=== PATIENT | male | born 1965 | race Caucasian/White ===

== ENCOUNTER 2022-10-10 14:10 | Outpatient (RCR) | payer OTHER, SELFPAY | END 2022-10-27 23:59 | LOC: NS 14:10 | PROVIDERS: Referring Provider Orthopaedic Surgery; Visit Provider Orthopaedic Surgery | DX: Z71.3 Dietary counseling and surveillance (principal); E66.9 Obesity, unspecified; Z68.42 Body mass index [BMI] 45.0-49.9, adult | CPT/HCPCS: 97802 ==

== ENCOUNTER 2022-12-08 12:04 | Outpatient (RCR) | payer OTHER, SELFPAY | END 2022-12-27 23:59 | LOC: NS 12:04 | PROVIDERS: Referring Provider Orthopaedic Surgery; Visit Provider Orthopaedic Surgery | DX: Z71.3 Dietary counseling and surveillance (principal); E66.9 Obesity, unspecified; Z68.42 Body mass index [BMI] 45.0-49.9, adult | CPT/HCPCS: 97803 ==

== ENCOUNTER → 2023-04-05 | Outpatient (CLI) | payer OTHER, SELFPAY ==
[2023-04-05 11:13] LABS: Absolute Lymphocyte Count 1.97 X10^3/uL (0.83-4.51); Absolute Neutrophil Count 4.5 X10^3/uL (2.0-7.7); Basophil# 0.05 X10^3/uL; Basophil% 0.7 % (0-1); Eosinophils% 1.4 % (0-5); Hematocrit 46.7 % (40-54); Hemoglobin 14.7 g/dL (13.0-16.5); Lymphocyte # 1.97 X10^3/ul (0.83-4.51); Lymphocyte % 27.4 % (19-41); Mean Corp Hgb Conc 31.5 g/dL (32-36); Mean Corpuscular Hgb 26.6 pg (27.0-32.0); Mean Corpuscular Volume 84.6 fL (80-94); Monocyte# 0.56 X10^3/uL; Monocyte% 7.8 % (0-10); NRBC Flagged by Analyzer 0 % (0-5); Neutrophil % 62.6 % (47-70); Platelet Count 316 K/mm3 (150-450); RBC Distribution Width CV 14.9 % (11.6-14.6); RBC Distribution Width SD 45.5 fl (35.1-43.9); Red Blood Count 5.52 M/mm3 (4.6-6.2); White Blood Count 7.2 K/mm3 (4.4-11.0)
[2023-04-05 11:44] LABS: AST(SGOT) 16 U/L (15-37); Alanine Aminotransfer ALT/SGPT 31 U/L (16-61); Albumin, Serum 3.8 g/dL (3.2-5.0); Alkaline Phosphatase 80 U/L (45-117); Anion Gap 5 (5-15); BUN 22 mg/dL (7-18); Calcium,Total 9.4 mg/dL (8.5-10.1); Chloride 109 mmol/L (98-107); Cholesterol 272 mg/dL (200); Creatinine, Serum 1.05 mg/dL (0.70-1.30); EST Glomerular Filtration Rate 78 mL/min (>60); Est Glom Filt Rate - Afr Amer 94 mL/min (>60); Globulin 3.8 g/dL (2.2-4.2); Glucose 108 mg/dL (74-106); High Density Lipoprotein 41 mg/dL; PSA,Total - Annual Screen 0.91 ng/mL (0.00-4.00); Potassium 4.2 mmol/L (3.5-5.1); Protein, Total 7.6 g/dL (6.4-8.2); Sodium Level 138 mmol/L (136-145); Triglycerides 162 mg/dL; Very Low Density Lipoprotein 32 mg/dL (5-40)
--- OUTSIDE RECORDS SUMMARY | 2023-04-05 11:53 | XMS RPT_ITS | CCD ---
Author Name Unknown Address [address] [place] [address] Organization [facility] Care Team Providers Care Special Warfare Operator Name Role Phone Unavailable Primary Care Provider SOFIA Gonzalez Attending Unavailable ARABELLA STUBBS Referring Unavailable SOFIA KHAN Attending Unavailable ARABELLA STUBBS Referring Unavailable ARABELLA STUBBS Referring Unavailable SOFIA KHAN Attending Unavailable SELF Referring Unavailable Medications Current Medications Medication Drug Class(es) Dates Sig (Normalized) Sig (Original) cephalexin 500 mg oral capsule (1 source) Cephalosporin Antibacterial Start: 10-18-2022 End: 10-28-2022 take 1 capsule by mouth four times daily cephALEXin (KEFLEX) 500 mg capsule Take 1 capsule by mouth four times daily for 10 days. 40 capsule 0 10/18/2022 10/28/2022 Active Problems Problem Classification Problem Date Documented Da te Episodic/Chronic Other non-epithelial cancer of skin (2 sources) Squamous cell carcinoma of skin; Translations: [Squamous cell carcinoma of skin, unspecified] 10-18-2022 Episodic Other skin disorders (4 sources) Lesion of face; Translations: [Disorder of the skin and subcutaneous tissue, unspecified] Episodic Other skin disorders (1 source) Disorder of the skin and subcutaneous tissue, unspecified; Translations: [Lesion of face] Onset: 08-29-2022 Episodic Results Test Name Value Interpretation Reference Range Facil ity Vital Signs Date Time Vital Sign Value Performing Clinician Faci lity 10-18-2022 13:35-0400 Body temperature 98.01 [degF] Sofia Khan MD Work Phone: [facility] 10-18-2022 13:35-0400 Body weight 146.78 kg Sofia Khan MD Work Phone: [facility] 10-18-2022 13:35-0400 Diastolic blood pressure 82 mm[Hg] Sofia Khan MD Work Phone: [facility] 10-18-2022 13:35-0400 Heart rate 93 /min Sofia Khan MD Work Phone: [facility] 10-18-2022 13:35-0400 SaO2% (BldA) [Mass fraction] 98 % Sofia Khan MD Work Phone: [facility] 10-18-2022 13:35-0400 Systolic blood pressure 140 mm[Hg] Sofia Khan MD Work Phone: [facility] 08-29-2022 14:54-0400 Body height 175.3 cm Sofia Khan MD Work Phone: [facility] 08-29-2022 14:54-0400 Body temperature 97.3 [degF] Sofia Khan MD Work Phone: [facility] 08-29-2022 14:54-0400 Body weight 146.69 kg Sofia Khan MD Work Phone: [facility] 08-29-2022 14:54-0400 Diastolic blood pressure 78 mm[Hg] Sofia Khan MD Work Phone: [facility] 08-29-2022 14:54-0400 Heart rate 94 /min Sofia Khan MD Work Phone: [facility] 08-29-2022 14:54-0400 SaO2% (BldA) [Mass fraction] 99 % Sofia Khan MD Work Phone: [facility] 08-29-2022 14:54-0400 Systolic blood pressure 140 mm[Hg] Sofia Khan MD Work Phone: [facility] 08-26-2022 12:49-0400 Body temperature 97.59 [degF] Arabella Stubbs APRN.CREDIT OFFICER Work Phone: [facility] 08-26-2022 12:49-0400 Body weight 146.78 kg Arabella Stubbs APRN.CREDIT OFFICER Work Phone: [facility] 08-26-2022 12:49-0400 Diastolic blood pressure 82 mm[Hg] Arabella Evelyne FRAME ASSEMBLER.CREDIT OFFICER Work Phone: [facility] 08-26-2022 12:49-0400 Heart rate 81 /min Arabella Evelyne FRAME ASSEMBLER.CREDIT OFFICER Work Phone: [facility] 08-26-2022 12:49-0400 Respiratory rate 16 /min Arabella Evelyne FRAME ASSEMBLER.CREDIT OFFICER Work Phone: [facility] 08-26-2022 12:49-0400 SaO2% (BldA) [Mass fraction] 95 % Arabella Evelyne FRAME ASSEMBLER.CREDIT OFFICER Work Phone: [facility] 08-26-2022 12:49-0400 Systolic blood pressure 144 mm[Hg] Arabella Evelyne FRAME ASSEMBLER.CREDIT OFFICER Work Phone: [facility] Encounters Encounter Date Encounter Type Care Provider Facility Start: 11-01-2022 End: 11-01-2022 ambulatory SOFIA KHAN Facility:[facility] Start: 11-01-2022 End: 11-01-2022 Patient encounter procedure Sofia Khan MD Work Phone: General Surgery Plan of Treatment Date Care Activity Detail Author Start: 10-28-2022 Influenza vaccination [facility] Start: 09-24-2022 PROSTATE CANCER SCREENING DISCUSSION PROSTATE CANCER SCREENING DISCUSSION [facility] Start: 02-27-2022 DEPRESSION ASSESSMENT DEPRESSION ASSESSMENT [facility] Start: 09-24-2017 SHINGRIX VACCINE (1 of 2) SHINGRIX VACCINE (1 of 2) [facility] Start: 09-24-2012 COLOGUARD (FIT-DNA) COLOGUARD (FIT-DNA) [facility] Start: 09-24-2012 Colonoscopy COLONOSCOPY [facility] Start: 09-24-2012 COLORECTAL CANCER SCREENING COLORECTAL CANCER SCREENING [facility] Start: 09-24-[address] COLONOGRAPHY [facility] Start: 09-24-2012 DIABETES SCREEN DIABETES SCREEN [facility] Start: 09-24-2012 FECAL OCCULT BLOOD FECAL OCCULT BLOOD [facility] Start: 09-24-2012 SIGMOIDOSCOPY SIGMOIDOSCOPY [facility] Start: 09-24-2002 LIPID SCREEN LIPID SCREEN [facility] Start: 09-24-1986 Urine microalbumin profile DTAP,TDAP,TD (1 - Tdap) [facility] Start: 09-24-1985 HEPATITIS C SCREENING HEPATITIS C SCREENING [facility] Start: 09-24-1985 HIV SCREENING HIV SCREENING [facility] Start: 03-27-1968 COVID-19 VACCINE (#1) COVID-19 VACCINE (#1) [facility] Start: 1965 HEPATITIS B (1 of 3 - 3-dose series) HEPATITIS B (1 of 3 - 3-dose series) [facility] SURGICAL PATHOLOGY SURGICAL PATH OLOGY Lab Routine Lesion of face Ordered: 08/29/2022 [facility] Work Phone: Social History Date Type Detail Facility Start: 08-26-2022 Tobacco smoking stat us MDIS Never smoked tobacco [facility] Start: 08-26-2022 Tobacco use and exposure Smoke less tobacco non-user [facility] Start: 1965 Sex Assigned At Not on file [facility] Start: 08-29-2022 End: 10-18-2022 Alcohol intake Lifetime non-drinker (finding) [facility] Start: 02-05-2020 End: 10-18-2022 History of Social function [facility] Start: 02-05-2020 End: 10-18-2022 Tobacco use panel [facility] National Score (1-10 0), lower number is lower risk Not on file [facility] Clinical Notes 08-26-2022 to 11-01-2022 Sofia Khan MD - 11/01/2022 6:28 PM Sofia Mack MD - 10/18/2022 1:59 PM Pat Fonseca RN - 08/29/2022 4:29 PM Rubio Khan MD - 08/29/2022 4:10 PM EDT Note Date & Type Note Facility 11-01-2022 Note HNO ID: [id number] Author: Sofia Khan MD Service: ? Author Type: Physician Type: Progress Notes Filed: 11/01/2022 6:31 PM Note Text: FOLLOW UP VISIT NAME: Genaro Escalona [facility] NO.: [id number] DATE OF SERVICE: 10/18/2022 : 1965 Genaro is a patient I am following for a left facial skin lesion. I performed excision of the skin lesion on August 29, 2022. Pathology returned as: FINAL DIAGNOSIS A. 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 At the initial follow-up visit, the patient noted that since this time, the site will become red, swell and have some pus drained intermittently. Returns today noting that the site is healed and he notes no abnormalities at the site of the excision. He stated he does not wish to have this site reexcised. He would rather watch the area for now. VITALS: There were no vitals taken for this visit. On examination, the site is healed and there is no current sign of recurrence. Assessment IMPRESSION: Status post excision of facial skin lesion squamous cell carcinoma in situ versus squamous cell carcinoma PLAN: I abdias with the patient that I am more comfortable excising the area but as squamous cell carcinomas are generally slow-growing if he preferred to watch the area closely for recurrence I felt that was reasonable. Diagnoses: No diagnosis found. Return to Clinic: The patient is instructed to follow-up with me if needed. Sofia Khan MD [facility] 11-01-2022 History of Presen t illness Narrative FOLLOW UP VISIT NAME: Genaro Escalona [facility] NO.: [id number] DATE OF SERVICE: 10/18/2022 : 1965 Genaro is a patient I am following for a left facial skin lesion. I performed excision of the skin lesion on August 29, 2022. Pathology returned as: FINAL DIAGNOSIS A. 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 At the initial follow-up visit, the patient noted that since this time, the site will become red, swell and have some pus drained intermittently. Returns today noting that the site is healed and he notes no abnormalities at the site of the excision. He stated he does not wish to have this site reexcised. He would rather watch the area for now. VITALS: There were no vitals taken for this visit. On examination, the site is healed and there is no current sign of recurrence. Assessment IMPRESSION: Status post excision of facial skin lesion squamous cell carcinoma in situ versus squamous cell carcinoma PLAN: I abdias with the patient that I am more comfortable excising the area but as squamous cell carcinomas are generally slow-growing if he preferred to watch the area closely for recurrence I felt that was reasonable. Diagnoses: No diagnosis found. Return to Clinic: The patient is instructed to follow-up with me if needed. Sofia Khan MD documented in this encounter [facility] 10-18-2022 Note HNO ID: [id number] Author: Sofia Khan MD Service: ? Author Type: Physician Type: Progress Notes Filed: 10/18/2022 3:08 PM Note Text: FOLLOW UP VISIT NAME: Genaro Escalona [facility] NO.: [id number] DATE OF SERVICE: 10/18/2022 : 1965 Genaro is a patient I am following for a left facial skin lesion. I performed excision of the skin lesion on August 29, 2022. Pathology returned as: FINAL DIAGNOSIS A. 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 Since that time, the patient notes that since this time, the site will become red, swell and have some pus drained intermittently. VITALS: Blood pressure 140/82, pulse 93, temperature 36.7 ?C (98 ?F), weight (!) 146.8 kg (323 lb 9.6 oz), SpO2 98 %. On examination, the site is slightly reddened question if there is a small ingrown hair. There is no current pustule. Assessment IMPRESSION: Status post excision of facial skin lesion squamous cell carcinoma in situ versus squamous cell carcinoma PLAN: If the patient notes any problems or signs of enedina infection, the patient should contact me immediately. Prescribed Keflex 4 times a day for 10 days anticipating this will hopefully resolve this issue and then have him return for wider excision in 2 weeks. Diagnoses: (L98.9) Lesion of face (primary encounter diagnosis) (C44.92) SCCA (squamous cell carcinoma) of skin Return to Clinic: The patient is instructed to follow-up with me in 2 weeks. Sofia Khan MD [facility] 10-18-2022 History of Presen t illness Narrative FOLLOW UP VISIT NAME: Genaro Escalona [facility] NO.: [id number] DATE OF SERVICE: 10/18/2022 : 1965 Genaro is a patient I am following for a left facial skin lesion. I performed excision of the skin lesion on August 29, 2022. Pathology returned as: FINAL DIAGNOSIS A. 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 Since that time, the patient notes that since this time, the site will become red, swell and have some pus drained intermittently. VITALS: Blood pressure 140/82, pulse 93, temperature 36.7 C (98 F), weight (!) 146.8 kg (323 lb 9.6 oz), SpO2 98 %. On examination, the site is slightly reddened question if there is a small ingrown hair. There is no current pustule. Assessment IMPRESSION: Status post excision of facial skin lesion squamous cell carcinoma in situ versus squamous cell carcinoma PLAN: If the patient notes any problems or signs of enedina infection, the patient should contact me immediately. Prescribed Keflex 4 times a day for 10 days anticipating this will hopefully resolve this issue and then have him return for wider excision in 2 weeks. Diagnoses: (L98.9) Lesion of face (primary encounter diagnosis) (C44.92) SCCA (squamous cell carcinoma) of skin Return to Clinic: The patient is instructed to follow-up with me in 2 weeks. Sofia Khan MD documented in this encounter [facility] 08-29-2022 Note HNO ID: [id number] Author: Sofia Khan MD Service: ? Author Type: Physician Type: Progress Notes Filed: 08/29/2022 4:40 PM Note Text: HISTORY AND PHYSICAL Genaro Alicea 1965 REFERRING PHYSICIAN: Arabella Stubbs APRN.CNP CHIEF COMPLAINT: skin lesion HPI: The patient is a 56 year old male. He notes a skin lesion on his lower left face. Past 3 to 4 months. He is uncertain what caused the origin of this. He was seen in primary care and noted to have this pencil eraser sized skin lesion. He wishes to have it removed. He does not take aspirin or blood thinners or other agents. SIGNIFICANT MEDICAL PROBLEMS: PAST MEDICAL HISTORY Diagnosis Date No pertinent past medical history 08/29/2022 OPERATIONS: PAST SURGICAL HISTORY Procedure Laterality Date NONE 08/29/2022 CURRENT MEDICATIONS: No current outpatient medications on file. No current facility-administered medications for this visit. ALLERGIES: Patient has no known allergies. PERSONAL HISTORY: Social History Tobacco Use Smoking status: Never Smokeless tobacco: Never Vaping Use Vaping Use: Never used Substance Use Topics Alcohol use: Never Drug use: Never FAMILY HISTORY: FAMILY HISTORY Problem Relation Age of Onset other (heart valve) Mother Diabetes Mother No Known Problems Father REVIEW OF SYMPTOMS: The review of systems data was entered by the nurse and reviewed by me There are no exam notes on file for this visit. PHYSICAL EXAMINATION: General: The patient is 56 year old male, well nourished, well hydrated in no acute distress. The patient is oriented to time, place, and person. VITALS: Blood pressure 140/78, pulse 94, temperature 36.3 ?C (97.3 ?F), height 175.3 cm (5' 9 ), weight (!) 146.7 kg (323 lb 6.4 oz), SpO2 99 %. Body mass index is 47.76 kg/m?. HEENT: Normal cephalic, ataumatic, pupils are equally round, sclera are anicteric, mucous membranes are moist, oropharynx is clear. Neck has no masses, asymmetry or lymphadenopathy. Thyroid is unremarkable. -Left lower face along the chin/jawline area-a 1 x 1 cm protuberant lesion consistent with chronic granulation tissue from an ingrown hair follicle LABORATORY VALUES: As Noted RADIOLOGIC STUDIES: As Noted PROCEDURE: EXCISION OF SKIN LESION The risks, benefits and anticipated outcomes of the procedure, the risks and benefits of the alternatives to the procedure, and the roles and tasks of the personnel to be involved, were discussed with the patient, and the patient consents to the procedure and agrees to proceed. I verify that I personally obtained the patient's consent. The patient`s skin was prepped and draped in the usual fashion. A combination of Lidocaine and Marcaine was injected into the skin. An elliptical incision was made around the lesion and was removed in its entirety. The specimen measured 1.5 by 1 cm. This was sent to pathology. The skin was then closed with interrupted 5-0 nylon sutures. The patient tolerated the procedure well. Assessment IMPRESSION: STATUS POST EXCISION OF SKIN LESION - LEFT FACE PLAN: Genaro is instructed to remove the dressing in two days. If the dressing becomes soaked or had significant drainage, the dressing should be changed. If there is minor bleeding from this skin edge, the patient should hold pressure on the incision. If there is continued bleeding, the patient should contact our office immediately. The patient may may wash the wound with gentle soap and water after two days. The wound should not be immersed in a pool, bathtub, or even hot tub. Diagnoses: (L98.9) Lesion of face Return to Clinic: The patient is instructed to follow-up with my staff in one week. Sofia Khan MD [facility] 08-29-2022 Note HNO ID: [id number] Author: Mehnaz Smith RN Service: ? Author Type: Registered Nurse Type: Progress Notes Filed: 08/29/2022 4:40 PM Note Text: UNIVERSAL PROTOCOL / SAFETY CHECKLIST Procedure to be Performed: Excision of left face lesion Sign In: A Moment of CARE was completed. Personnel directly involved with the procedure wore the appropriate PPE (Personal Protective Equipment). No special equipment needed. Patient/Surrogate Stated/Verified: PATIENT VERIFIED(optional for EMERGENT procedures): Patient name, Date of , Relevant allergies, and The intended procedure Time Out Communication: Intended patient and procedure match the source documents. Consent documented and matches the intended procedure. No relevant labs, photos, and/or imaging studies were applicable for review. Correct side/site marked and visible. Medications required for procedure verified. No fire risk assessment and interventions applicable. No implant(s) inserted. Sign Out: SIGN OUT (optional for EMERGENT procedures): All specimen containers correctly labeled. All instruments, equipment, possible retained foreign bodies accounted for. Post-procedure follow-up management communicated and Plan of Care Visit completed when applicable. Mehnaz Smith RN [facility] 08-29-2022 Nurse Note REVIEW OF SYSTEMS: General: The patient denies fatigue, denies weight loss, denies weight gain, denies feeling hot, and denies feelings of cold. Eyes: The patient denies glaucoma, denies eye injury/surgery, wears glasses or contacts. Ear/Nose/Throat: The patient denies allergies, denies hayfever, denies ear infections, and denies bloody noses. Cardiovascular: The patient denies chest pain, denies heart disease, denies high blood pressure,denies cardiac stent, denies prior heart attack, denies irregular heart beat, denies high cholesterol, denies poor circulation, denies heart failure, other cardiac issues, denies claudication, denies cold feet, denies peripheral arterial stent. Respiratory: The patient denies tuberculosis, denies pneumonia, denies frequent cough, denies pulmonary embolism, denies shortness of breath, and denies coughing up blood. Gastrointestinal: The patient denies difficulty swallowing, denies acid reflux, denies ulcers, denies vomiting, denies jaundice/hepatitis, denies gallbladder problems, denies black or tarry stools, denies hemorrhoids, denies bleeding from rectum, denies diverticulitis, denies constipation, denies diarrhea, denies loss of stool control, and denies hernias. Kidney/Bladder: The patient denies kidney stones, denies urine infections, and denies bloody urine. Skin: The patient denies a history of skin cancer, NOTES bleeding/changing moles, and denies a history of skin rash. Neurologic: The patient denies a history of epilepsy/convulsions, denies headaches, denies head/spinal injuries, and denies stroke/TIA. Psychiatric: The patient denies psychiatric medications, denies depression, and denies voices, denies substance abuse. Endocrine: The patient denies thyroid disorders, denies diabetes, and denies hormonal problems. Hematologic: The patient denies a history of bruising, denies bleeding, and denies anemia, denies blood clots. Infections: The patient denies a history of measles and mumps, denies rheumatic fever, and denies sexually transmitted diseases. Musculoskeletal: The patient denies back pain/injury, denies back problems, denies sciatica, NOTES knee/foot trouble, NOTES arthritis, or denies gout. When was patient's last Mammogram screening? N/A Last Colonoscopy: None Keerthi Fonseca RN documented in this encounter [facility] 08-29-2022 History of Presen t illness Narrative HISTORY AND PHYSICAL Genaro Pola [place] 1965 REFERRING PHYSICIAN: Arabella Stubbs APRN.CREDIT OFFICER CHIEF COMPLAINT: skin lesion HPI: The patient is a 56 year old male. He notes a skin lesion on his lower left face. Past 3 to 4 months. He is uncertain what caused the origin of this. He was seen in primary care and noted to have this pencil eraser sized skin lesion. He wishes to have it removed. He does not take aspirin or blood thinners or other agents. SIGNIFICANT MEDICAL PROBLEMS: PAST MEDICAL HISTORY Diagnosis Date No pertinent past medical history 08/29/2022 OPERATIONS: PAST SURGICAL HISTORY Procedure Laterality Date NONE 08/29/2022 CURRENT MEDICATIONS: No current outpatient medications on file. No current facility-administered medications for this visit. ALLERGIES: Patient has no known allergies. PERSONAL HISTORY: Social History Tobacco Use Smoking status: Never Smokeless tobacco: Never Vaping Use Vaping Use: Never used Substance Use Topics Alcohol use: Never Drug use: Never FAMILY HISTORY: FAMILY HISTORY Problem Relation Age of Onset other (heart valve) Mother Diabetes Mother No Known Problems Father REVIEW OF SYMPTOMS: The review of systems data was entered by the nurse and reviewed by me There are no exam notes on file for this visit. PHYSICAL EXAMINATION: General: The patient is 56 year old male, well nourished, well hydrated in no acute distress. The patient is oriented to time, place, and person. VITALS: Blood pressure 140/78, pulse 94, temperature 36.3 C (97.3 F), height 175.3 cm (5' 9 ), weight (!) 146.7 kg (323 lb 6.4 oz), SpO2 99 %. Body mass index is 47.76 kg/m . HEENT: Normal cephalic, ataumatic, pupils are equally round, sclera are anicteric, mucous membranes are moist, oropharynx is clear. Neck has no masses, asymmetry or lymphadenopathy. Thyroid is unremarkable. -Left lower face along the chin/jawline area-a 1 x 1 cm protuberant lesion consistent with chronic granulation tissue from an ingrown hair follicle LABORATORY VALUES: As Noted RADIOLOGIC STUDIES: As Noted PROCEDURE: EXCISION OF SKIN LESION The risks, benefits and anticipated outcomes of the procedure, the risks and benefits of the alternatives to the procedure, and the roles and tasks of the personnel to be involved, were discussed with the patient, and the patient consents to the procedure and agrees to proceed. I verify that I personally obtained the patient's consent. The patient`s skin was prepped and draped in the usual fashion. A combination of Lidocaine and Marcaine was injected into the skin. An elliptical incision was made around the lesion and was removed in its entirety. The specimen measured 1.5 by 1 cm. This was sent to pathology. The skin was then closed with interrupted 5-0 nylon sutures. The patient tolerated the procedure well. Assessment IMPRESSION: STATUS POST EXCISION OF SKIN LESION - LEFT FACE PLAN: Genaro is instructed to remove the dressing in two days. If the dressing becomes soaked or had significant drainage, the dressing should be changed. If there is minor bleeding from this skin edge, the patient should hold pressure on the incision. If there is continued bleeding, the patient should contact our office immediately. The patient may may wash the wound with gentle soap and water after two days. The wound should not be immersed in a pool, bathtub, or even hot tub. Diagnoses: (L98.9) Lesion of face Return to Clinic: The patient is instructed to follow-up with my staff in one week. Sofia Khan MD UNIVERSAL PROTOCOL / SAFETY CHECKLIST Procedure to be Performed: Excision of left face lesion Sign In: A Moment of CARE was completed. Personnel directly involved with the procedure wore the appropriate PPE (Personal Protective Equipment). No special equipment needed. Patient/Surrogate Stated/Verified: PATIENT VERIFIED(optional for EMERGENT procedures): Patient name, Date of , Relevant allergies, and The intended procedure Time Out Communication: Intended patient and procedure match the source documents. Consent documented and matches the intended procedure. No relevant labs, photos, and/or imaging studies were applicable for review. Correct side/site marked and visible. Medications required for procedure verified. No fire risk assessment and interventions applicable. No implant(s) inserted. Sign Out: SIGN OUT (optional for EMERGENT procedures): All specimen containers correctly labeled. All instruments, equipment, possible retained foreign bodies accounted for. Post-procedure follow-up management communicated and Plan of Care Visit completed when applicable. Mehnaz Smith RN documented in this encounter [facility] 08-29-2022 Instructions Mehnaz Smith RN - 08/29/2022 3:16 PM EDT The following instructions are important for you related to your office visit today with the [facility] General Surgeons. Instructions After SKIN EXCISION-SUTURES If there is minor bleeding from this skin edge, you should hold pressure on the incision until the bleeding stops. If there is continued bleeding, you should contact our office immediately. You do not need to leave a dressing on the wound after two days. If the wound shows signs of redness, inflammation, or purulent drainage, you should contact our office immediately. You should keep the wound dry for the first two days. After that time, you may wash the wound with gentle soap and water. The wound should not be immersed in a pool, bathtub, or even hot tub. We prefer to check the incision and remove the stitches in our office when ready. Please make an appointment to return to our office in 1 week. Please do not remove the stitches yourself without approval from our office. If you note any additional difficulties, questions, or concerns, you should contact our office immediately @ [phone] and ask to be transferred to the General Surgery department. documented in this encounter [facility] 08-26-2022 Note HNO ID: [id number] Author: Arabella Stubbs APRN.JAIDA Service: ? Author Type: Nurse Practitioner Type: Progress Notes Filed: 08/26/2022 1:42 PM Note Text: Subjective The history is provided by the patient. No career development counselor was used. HPI Genaro Alicea is a 56 year old male who presents today for CC of lesion on face for 3 months that is enlarging and not going away. BP 144/82 Pulse 81 Temp 36.4 ?C (97.6 ?F) (Tympanic) Resp 16 Wt (!) 146.8 kg (323 lb 9.6 oz) SpO2 95% Social History Tobacco Use Smoking status: Never Smokeless tobacco: Never No past medical history on file. I have confirmed and edited as necessary, the [place] Review of Systems Constitutional: Negative for chills and fever. Musculoskeletal: Negative for joint pain and myalgias. Skin: Negative for itching and rash. All other systems reviewed and are negative. Objective Physical Exam Vitals and nursing note reviewed. HENT: Head: Comments: Nevi, larger than pencil eraser, cracked, bleeding, per patient getting larger over past 3 months Pulmonary: Effort: Pulmonary effort is normal. Skin: General: Skin is warm and dry. Neurological: Mental Status: He is alert and oriented to person, place, and time. Psychiatric: Mood and Affect: Affect normal. ASSESSMENT/PLAN: 1. Lesion of face - ICD9: 709.9, ICD10: L98.9 Advised will schedule with general surgery and will evaluate, if able to remove will do so, and if not advised to follow up with Dermatology. - CONSULT TO GENERAL SURGERY Diagnosis and treatment plan were discussed and questions were answered to the patient's satisfaction. Pt acknowledged understanding of concepts and follow up plan. Specific signs and symptoms that would indicate the need for higher level of care were discussed in detail warranting prompt ER evaluation. Arabella Stubbs APRN.CNP [facility] 08-26-2022 Instructions Arabella Stubbs APRN.CNP - 08/26/2022 1:19 PM EDT Options Appointment September 26 at 220 pm at [facility] [phone] Or May call surgeons at [place], evaluate and decide if can remove, referral placed. documented in this encounter [facility] 08-26-2022 History of Presen t illness Narrative Subjective The history is provided by the patient. No career development counselor was used. HPI Genaro Alicea is a 56 year old male who presents today for CC of lesion on face for 3 months that is enlarging and not going away. BP 144/82 Pulse 81 Temp 36.4 C (97.6 F) (Tympanic) Resp 16 Wt (!) 146.8 kg (323 lb 9.6 oz) SpO2 95% Social History Tobacco Use Smoking status: Never Smokeless tobacco: Never No past medical history on file. I have confirmed and edited as necessary, the [place] Review of Systems Constitutional: Negative for chills and fever. Musculoskeletal: Negative for joint pain and myalgias. Skin: Negative for itching and rash. All other systems reviewed and are negative. Objective Physical Exam Vitals and nursing note reviewed. HENT: Head: Comments: Nevi, larger than pencil eraser, cracked, bleeding, per patient getting larger over past 3 months Pulmonary: Effort: Pulmonary effort is normal. Skin: General: Skin is warm and dry. Neurological: Mental Status: He is alert and oriented to person, place, and time. Psychiatric: Mood and Affect: Affect normal. ASSESSMENT/PLAN: 1. Lesion of face - ICD9: 709.9, ICD10: L98.9 Advised will schedule with general surgery and will evaluate, if able to remove will do so, and if not advised to follow up with Dermatology. - CONSULT TO GENERAL SURGERY Diagnosis and treatment plan were discussed and questions were answered to the patient's satisfaction. Pt acknowledged understanding of concepts and follow up plan. Specific signs and symptoms that would indicate the need for higher level of care were discussed in detail warranting prompt ER evaluation. Arabella Stubbs APRN.CNP documented in this encounter [facility] Diagnosis Lesion of face- Primary SCCA (squamous cell carcinoma) of skin [facility]* Diagnosis SCCA (squamous cell carcinoma) of skin- Primary Lesion of face documented in this encounter [facility] Reason for Referral Specialty Diagnoses / Procedures Referred By Isma madrid Referred To Contact General Surgery Diagnoses Lesion of face Procedures CONSULT TO GENERAL SURGERY OFFICE/OUTPATIENT [facility] 60-74 MINUTES Arabella Stubbs APRN.CREDIT OFFICER [id number] [place] [address] Referral ID Status Reason Start Date Expiration Date Visits Requested Visits Authorized [id number] Pending Review PCP Requested Referral 08/26/2022 08/26/2023 1 1 Summary Purpose Family History No Family History Records Found Advance Directives No Advanced Directives Records Found Additional Source Comments Source Comments (unrecognize d section and content) In the event this informatio n is protected by the Federal Confidentiality of Alcohol and Drug Abuse Patient Records regulations: The Federal rules restrict any use of the information to criminally investigate or prosecute any alcohol or drug abuse patient.[facility] the event this information is protected by the Federal Confidentiality of Alcohol and Drug Abuse Patient Records regulations: The Federal rules restrict any use of the information to criminally investigate or prosecute any alcohol or drug abuse patient.[facility] the event this information is protected by the Federal Confidentiality of Alcohol and Drug Abuse Patient Records regulations: The Federal rules restrict any use of the information to criminally investigate or prosecute any alcohol or drug abuse patient.[facility] the event this information is protected by the Federal Confidentiality of Alcohol and Drug Abuse Patient Records regulations: The Federal rules restrict any use of the information to criminally investigate or prosecute any alcohol or drug abuse patient.[facility] Reason for Visit (unrecogniz ed section and content) Specialty Diagnoses / Procedures Referred By Isma madrid Referred To Contact Diagnoses Nevi on face, bleeding and enlarging Procedures Nevi on face, bleeding and enlarging Arabella Stubbs, FRAME ASSEMBLER.CREDIT OFFICER [address] [place] [address] [place] [address] Referral ID Status Reason Start Date Expiration Date Visits Requested Visits Authorized [id number] Authorized Patient Cleared - Qualified 100% FAS 08/26/2022 11/24/2022 99 99 Reason Comments Pain Pt reported (LT) rosa ed swollen area, x3 mths. Reason Comments Consult Lesion on face for 1 2 weeks, enlarging in size. Procedure Specialty Diagnoses / Procedures Referred By Isma madrid Referred To Contact Diagnoses Nevi on face, bleeding and enlarging Procedures Nevi on face, bleeding and enlarging Arabella Stubbs, FRAME ASSEMBLER.CREDIT OFFICER [address] [place] [address] [facility] Reason Comments Consult Lesion of face/ foll ow up of re-excision (unrecognized sect ion and content) No Status Records Found INFORMATION SOURCE (unrecogn ized section and content) FOR RECORDS PERTAINING TO PATIENTS WHO ARE OR HAVE BEEN ENROLLED IN A CHEMICAL DEPENDENCY/SUBSTANCEABUSE PROGRAM, SOME INFORMATION MAY BE OMITTED. This clinical summary was aggregated from multiple sources. Caution should be exercised in using it in the provision of clinical care. This summary normalizes information from multiple sources, and as a consequence, information in this document may materially change the coding, format and clinical context of patient data. In addition, data may be omitted in some cases. CLINICAL DECISIONS SHOULD BE BASED ON THE PRIMARY CLINICAL RECORDS. [facility] [employer] [facility]. provides no warranty or guarantee of the accuracy or completeness of information in this document.
[2023-04-05 13:22] LABS: Hemoglobin A1c 5.9 % (3.8-5.6)
== END | disposition home or self-care (01) ==
LOC: BIMLAB 09:46
PROVIDERS: PCP Physician Assistant; Visit Provider Physician Assistant
DX: Z00.00 Encounter for general adult medical examination without abnormal findings (principal)
CPT/HCPCS: 36415; 80053; 80061; 83036; 84153; 85025; G0103

== ENCOUNTER 2023-05-02 13:26 | Outpatient (RCR) | payer OTHER, SELFPAY | END 2023-05-28 23:59 | LOC: NS 13:26 | PROVIDERS: Referring Provider Orthopaedic Surgery; Visit Provider Orthopaedic Surgery | DX: Z71.3 Dietary counseling and surveillance (principal); E66.9 Obesity, unspecified; Z68.42 Body mass index [BMI] 45.0-49.9, adult | CPT/HCPCS: 97803 ==

== ENCOUNTER → 2023-08-30 | Outpatient (CLI) | payer OTHER, SELFPAY ==
[2023-08-30 15:58] LABS: Anion Gap 5 (5-15); BUN 20 mg/dL (7-18); Calcium,Total 9.4 mg/dL (8.5-10.1); Chloride 105 mmol/L (98-107); Cholesterol 247 mg/dL (200); EST Glomerular Filtration Rate 82 mL/min (>60); Est Glom Filt Rate - Afr Amer 99 mL/min (>60); Glucose 88 mg/dL (74-106); High Density Lipoprotein 43 mg/dL; Potassium 4.4 mmol/L (3.5-5.1); Sodium Level 139 mmol/L (136-145); Thyroid Stim Hormone (TSH) 1.94 uIU/mL (0.358-3.74); Triglycerides 96 mg/dL; Very Low Density Lipoprotein 19 mg/dL (5-40)
== END | disposition home or self-care (01) ==
LOC: BIMLAB 12:15
PROVIDERS: PCP Physician Assistant; Referring Provider Physician Assistant; Visit Provider Physician Assistant
DX: E78.2 Mixed hyperlipidemia (principal); I10 Essential (primary) hypertension; E66.9 Obesity, unspecified
CPT/HCPCS: 36415; 80048; 80061; 84443

== ENCOUNTER 2025-01-23 15:26 | Emergency (ER) | payer OTHER, SELFPAY ==
[2025-01-23] VITALS (8 sets, daily range): BP systolic 172–192; BP diastolic 68–82; PULSE 92–112; RESP 16–21; TEMP 36.7–38.2; O2SAT 95–100; BMI 46.3
--- OUTSIDE RECORDS SUMMARY | 2025-01-23 16:01 | XMS RPT_ITS | CCD ---
Author Organization [facility] Care Team Providers Care Airline Security Representative Name Role Phone Unavailable Primary Care Provider Unavailabl LAMINE Bosch Attending Unavailable EVELYNE ARABELLA Referring Unavailable LAMINE KHAN Attending Unavailable EVELYNE, ARABELLA Referring Unavailable EVELYNE, ARABELLA Referring Unavailable LAMINE KHAN Attending Unavailable SELF Referring Unavailable Care Physician, No Primary Primary Care Provider Unavailable Care Physician, No Primary Referring Provider Un available Wayt PA, PA Maury Attending Provider [phone] Care Physician, No Primary Primary Care Provider Unavailable Care Physician, No Primary Referring Provider Un available Wayt PA, PA Maury Attending Provider [phone] Wayt PA, PA Maury Primary Care Provider Wayt PA, PA Maury Referring Provider Unavailable Primary Care Provider UnavailKashmir Dias Attending Unavailable Wayt PA, Maury Primary Care Unavailable Wayt PA, Maury Primary Care Unavailable Wayt PA, Maury Attending Unavailable Wayt PA, Maury Referring Unavailable Wayt PA, Maury Primary Care Unavailable Wayt PA, Maury Attending Unavailable Wayt PA, Maury Referring Unavailable Wayt PA, Maury Attending Unavailable Wayt PA, Maury Referring Unavailable Wayt PA, Maury Primary Care Unavailable Helder Martinez Attending Unavailable Wayt PA, Maury Referring Unavailable Wayt PA, Maury Primary Care Unavailable Kashmir Lamb Attending Unavailable Wayt PA, Maury Primary Care Unavailable Helder Martinez Attending Unavailable Wayt PA, Maury Referring Unavailable Wayt PA, Maury Primary Care Unavailable Wayt PA, Maury Primary Care Unavailable Helder Martinez Attending Unavailable Wayt PA, Maury Referring Unavailable Medications Current Medications Medication Drug Class(es) Dates Sig (Normalized) Sig (Original) cephalexin 500 mg oral capsule (1 source) Cephalosporin Antibacterial Start: 10-18-2022 End: 10-28-2022 take 1 capsule by mouth four times daily cephALEXin (KEFLEX) 500 mg capsule Take 1 capsule by mouth four times daily for 10 days. 40 capsule 0 10/18/2022 10/28/2022 Active Comment on above: Take 1 capsule by mo [facility] four times daily for 10 days. losartan potassium 25 mg oral tablet (2 sources) Angiotensin 2 Receptor Reed Start: 04-05-2023 take 12.5 mg by mouth once daily Losartan Active 12.5 MG PO DAILY April 05, 2023 1:00am Problems Active Problems Problem Classification Problem Date Documented Da te Episodic/Chronic Disorders of lipid metabolism (3 sources) Hyperlipidemia; Translations: [Hyperlipidemia, unspecified] Onset: 09-11-2023 04-20-2023 Chronic Essential hypertension (6 sources) Essential hypertension; Translations: [Essential (primary) hypertension] Onset: 08-30-2023 04-05-2023 Chronic Osteoarthritis (1 source) Unilateral primary osteoarthritis, right knee; Translations: [Unilateral primary osteoarthritis, right knee] Onset: 05-13-2024 Chronic Other lower respiratory disease (1 source) Cough; Translations: [Cough] 12-16-2019 Episodic Other non-epithelial cancer of skin (2 sources) Squamous cell carcinoma of skin; Translations: [Squamous cell carcinoma of skin, unspecified] 10-18-2022 Episodic Other non-traumatic joint disorders (1 source) Pain in right knee; Translations: [Pain in right knee] Onset: 05-13-2024 Episodic Other nutritional; endocrine; and metabolic disorders (1 source) Obesity, unspecified; Translations: [Obesity, unspecified] Onset: 08-30-2023 Chronic Other skin disorders (4 sources) Lesion of face; Translations: [Disorder of the skin and subcutaneous tissue, unspecified] Episodic Other skin disorders (1 source) Disorder of the skin and subcutaneous tissue, unspecified; Translations: [Lesion of face] Onset: 08-29-2022 Episodic Past or Other Problems Problem Classification Problem Date Documented Da te Episodic/Chronic Other connective tissue disease (1 source) Trochanteric bursitis, right hip; Translations: [Trochanteric bursitis, right hip] Onset: 08-30-2023 Episodic Other non-traumatic joint disorders (1 source) Pain in right hip; Translations: [Pain in right hip] Onset: 08-30-2023 Episodic Results Test Name Value Interpretation Reference Range Facility Orthopedic Visit Reporton Orthopedic Visit Report [facility] [address] [place] [id number] OFFICE VISIT Date of Service: 06/26/24 MR#: [id number] Acct: [id number] Name: GENARO ALICEA Rep #: [id number] : 1965 Provider: Dr. Helder mcintyre DO Age/Sex: 58/M Location: [facility] Status: Signed Intake Vital Signs 05/13/24 14:53 06/26/24 15:35 Height 5 ft 9 in 5 ft 9 in Weight: 303 lb 6 oz 308 lb 2 oz BMI 44.8 45.5 Intake Visit Reasons: RIGHT KNEE Chief Complaint: Right Knee Pain Is patient in pain?: Yes (right knee) Pain scale (1-10): 5 Allergies No Known Allergies Allergy (Unverified 06/26/24 15:19) Medications ???Medication ???Instructions ???Recorded ???Confirmed ???Type losartan 25 mg tablet 12.5 mg (1/2 x 25 mg) PO DAILY #30 08/30/23 06/26/24 Rx tabs etodolac 500 mg tablet 500 mg PO BID PRN pain #60 tabs 06/26/24 Rx PFSH Family History Mother Heart disease Diabetes Hypertension Grandfather CVA (cerebral vascular accident) Social History household members: spouse and friend(s) current occupation: self employed Smoking Status: Never smoker alcohol intake: never substance use type: does not use what type of physical activity do you participate in: bicycling frequency: 5-6 times per week do you feel safe at home: Yes HPI RIGHT KNEE Chief Complaint: right knee pain Details: This documentation accurately reflects the service provided and the decisions made by me, Dr. Helder Martinez, 06/26/24 1427. Part of today???s visit was documented by [ ], acting as scribe. GENARO ALICEA is a 58 year old M here today for right knee pain. He states the last injection was helpful for 5 weeks until the pain and stiffness has gradually returned. He states he was unable to notice if the Etodolac was helpful but he is now out of them. He also c/o some mild swelling has returned. 05/13/2024 office visit: here today for right knee pain. Patient states the knee has been bothering him several years and he denies any injury or accident that caused the pain. He denies any injury or surgeries prior. Patient fell from a ladder about 30 years ago and injured one of his knees, although he isnt sure what knee. He describes the pain over the anterior and medial aspect of the knee. He states the knee has given out on him. He denies any numbness/tingling. Patient denies any injections, physical therapy or previous surgery. He will take Tylenol for the pain in the evening when the pain is increased. He states he had an x-ray done years ago at a different location and was told the knee is bone on bone. He denies any mechanical symptoms. Plan: Spoke with the patient about the anatomy of the knee and etiology of his pain. He had narrowing of his medial compartment and spurring under his patella. His options include- steroid injection, viscosupplementation injections, oral anti-inflammatory, physical therapy, bracing, weight loss. He is not a candidate for a knee arthroplasty as his osteoarthritis hasnt progressed enough and he needs to lower his BMI. Recommended he try the steroid injection first. He can have a steroid injection every 3 months as needed. Patient would like to proceed with the steroid injection and oral anti-inflammatory. Follow up on an as needed basis or sooner if pain, swelling, numbness or associated symptoms, or concerns develop. All questions answered. Patient in agreement of plan. Ortho Exam General General: Yes no acute distress Neurologic: Yes alert and Yes oriented x3 Psychologic: Yes reasonable and appropriate Right Knee Skin/Wound: Yes CDI, No erythema, No ecchymosis and Yes swelling Knee ROM: Yes ROM-Extension -20 to 0 and Yes ROM-Flexion 0-140 (112) Examination: Yes Med jt line tenderness, No Lat jt line tenderness, No Herbie's Test and No TTP Pes Anserine Stability: NML: Valgus 0 (2mm medial gapping), NML: Valgus 30, NML: Varus 0 and NML: Varus 30 Apprehension with Lateral Translation: No Patella Grind: No KNEE: pitting edema to tibial tubicle. intact quad, good quad tone. Supplemental Info 05/13/2024 x-ray right knee: There is mild to approaching moderate medial joint space narrowing there is spurring noted medial patellofemoral compartment 08/29/2020 x-ray right hip: Preserved joint space there is a subchondral cyst in the acetabulum but no other arthritic findings Coding Level of Care Code Off vis,est,level 3 Diagnoses Primary osteoarthritis of right knee M17.11 Osteoarthritis type: primary Class 3 severe obesity due to excess calories without serious comorbidity with body mass index (BMI) of 40.0 to 44.9 in adult E66.813; E66.01; Z68.41 Obesity type: due to excess c (more content not included)... Normal [facility] Knee 4 or More Viewson 05-13 Knee 4 or More Views [facility] Imaging Services [address] [place] [address] Knee 4 or More Views MR#: [id number] Acct: [id number] Name: GENARO ALICEA Rep #: [id number] : 1965 M 58 From: Anival Molina DO PCP: SANDRA Kerns Status: DEP AMB Study: Knee 4 or More Views Date of Exam: 05/13/24 Exam# [id number] Ordering Dr: Helder Martinez DO PROCEDURE: KNEE 4 OR MORE VIEWS 05/13/2024 REASON FOR EXAM: CHRONIC PAIN TECHNIQUE: 3 views of the right knee COMPARISON: None. FINDINGS: No acute fracture. Normal alignment. Small joint effusion. Soft tissues are unremarkable. RAD/Knee 4 or More Views IMPRESSION: Small suprapatellar joint effusion. No acute fracture. Reading Location: [facility] CC: Dr. Helder Martinez DO; SANDRA Kerns [employer] W[employer] Oiler: Signed Normal [facility] Orthopedic Visit Reporton Orthopedic Visit Report [facility] [address] [place] [address] OFFICE VISIT Date of Service: 05/13/24 MR#: [id number] Acct: [id number] Name: GENARO ALICEA Rep #: [id number] : 1965 Provider: Dr. Helder mcintyre DO Age/Sex: 58/M Location: [facility] Status: Signed Intake Vital Signs 11/29/23 08:04 05/13/24 14:53 Height 5 ft 9 in 5 ft 9 in Weight: 281 lb 303 lb 6 oz BMI 41.5 44.8 BP 122/78 H Blood Pressure Location Lt brachial Position Sitting Respiration 14 Pulse 64 Pulse Source Monitor Temp 97.6 F L Temp Source Temporal Pulse Oximetry (%) 98 Oxygen Delivery Method room air Intake Visit Reasons: RIGHT KNEE Chief Complaint: Right Knee Pain Accompanied by: Self Is patient in pain?: Yes Pain scale (1-10): 4 Allergies No Known Allergies Allergy (Unverified 05/13/24 14:54) Medications ???Medication ???Instructions ???Recorded ???Confirmed ???Type losartan 25 mg tablet 12.5 mg (1/2 x 25 mg) PO DAILY #30 08/30/23 05/13/24 Rx tabs etodolac 500 mg tablet 500 mg PO BID PRN pain #60 tabs 05/13/24 Rx PFSH Family History Mother Heart disease Diabetes Hypertension Grandfather CVA (cerebral vascular accident) Social History household members: spouse and friend(s) current occupation: self employed Smoking Status: Never smoker alcohol intake: never substance use type: does not use what type of physical activity do you participate in: bicycling frequency: 5-6 times per week do you feel safe at home: Yes HPI RIGHT KNEE Details: This documentation accurately reflects the service provided and the decisions made by me, Dr. Helder Martinez, DO 05/13/24 0933. Part of today???s visit was documented by Onelia Irby ATC, acting as scribe. GENARO ALICEA is a 58 year old M here today for right knee pain. Patient states the knee has been bothering him several years and he denies any injury or accident that caused the pain. He denies any injury or surgeries prior. Patient fell from a ladder about 30 years ago and injured one of his knees, although he isnt sure what knee. He describes the pain over the anterior and medial aspect of the knee. He states the knee has given out on him. He denies any numbness/tingling. Patient denies any injections, physical therapy or previous surgery. He will take Tylenol for the pain in the evening when the pain is increased. He states he had an x-ray done years ago at a different location and was told the knee is bone on bone. He denies any mechanical symptoms. Ortho Exam General General: Yes no acute distress Neurologic: Yes alert and Yes oriented x3 Psychologic: Yes reasonable and appropriate Right Knee Skin/Wound: Yes CDI, No erythema, No ecchymosis and No swelling Knee ROM: Yes ROM-Extension -20 to 0 (full) and Yes ROM-Flexion 0-140 (85) Examination: Yes Med jt line tenderness, No Lat jt line tenderness, No Herbie's Test and No TTP Pes Anserine Stability: NML: Anterior Drawer, NML: Posterior Drawer, NML: Valgus 0, NML: Valgus 30, NML: Varus 0 and NML: Varus 30 Apprehension with Lateral Translation: No Patella Grind: No Office Procedures Ortho Injections Injections Yes Knee Right Is this a patient provided medication?: No Details: Obtained consent for injection. Under sterile conditions, injected the patient's right knee with 2cc bupivacaine, 2cc lidocaine and 1cc depomedrol. The patient tolerated the injection well without any noted complication. Patient should call our office if redness develops, pain worsens or if they have any concerns. Office Meds Depo-Medrol 40 mg/mL suspension for injection Performing Provider: Helder Martinez DO Performing Location: [facility] Administered by: Helder Martinez DO on 05/13/24 15:57 Dose Route Admin Location Dispensed Lot Number Expiration Date NDC Man ufacturer 40 mg intra-articular right knee 1 mL [id number] 09/27/25 0322-5430-85 [employer]ARM [employer]-UPJHN Supplemental Info 05/13/2024 x-ray right knee: There is mild to approaching moderate medial joint space narrowing there is spurring noted medial patellofemoral compartment 08/29/2020 x-ray right hip: Preserved joint space there is a subchondral cyst in the acetabulum but no other arthritic findings Coding Level of Care Code Off vis,est,level 4 Diagnoses Primary osteoarthritis of right knee M17.11 Osteoarthritis type: primary Class 3 severe obesity due to excess calories without serious comorbidity with body mass index (BMI) of 40.0 to 44.9 in adult E66.813; E66.01; Z68.41 Obesity type: due to excess calories Obesity classification: adult class 3 (BMI >= 40) Serious obes (more content not included)... Normal [facility] Internal Medicine Office Vis iton 11-29-2023 Internal Medicine Office Visit [facility] [address] [place] [address] [address] [place] [address] OFFICE VISIT Date of Service: 11/29/23 MR#: [id number] Acct: [id number] Name: GENARO ALICEA Rep #: [id number] : 1965 Provider: SANDRA Kerns Age/Sex: 58/M Location: [facility] Status: Signed Intake Vital Signs 08/30/23 10:34 11/29/23 08:04 Height 5 ft 9 in 5 ft 9 in Weight: 280 lb 281 lb BMI 41.3 41.5 BP 118/82 H 122/78 H Blood Pressure Location Lt brachial Lt brachial Position Sitting Sitting Respiration 16 14 Pulse 69 64 Pulse Source Monitor Monitor Temp 97.9 F 97.6 F L Temp Source Temporal Temporal Pulse Oximetry (%) 98 98 Oxygen Delivery Method room air room air Intake Visit Reasons: 3 M FU Chief Complaint: 4 M FU Lan Analyst Required: No Is patient in pain?: No Allergies No Known Allergies Allergy (Unverified 11/29/23 07:54) Medications ???Medication ???Instructions ???Recorded ???Confirmed ???Type etodolac 500 mg tablet 500 mg PO BID #60 tabs 08/30/23 11/29/23 Rx losartan 25 mg tablet 12.5 mg (1/2 x 25 mg) PO DAILY #30 08/30/23 11/29/23 Rx tabs Nurse's Note: Declines flu vaccine. PFSH Family History Mother Heart disease Diabetes Hypertension Grandfather CVA (cerebral vascular accident) Social History household members: spouse and friend(s) current occupation: self employed Smoking Status: Never smoker alcohol intake: never substance use type: does not use what type of physical activity do you participate in: bicycling frequency: 5-6 times per week do you feel safe at home: Yes HPI HPI Chief Complaint: 4 M FU Details: GENARO ALICEA, is a 58 M who presents to the office today for a recheck of of his blood pressure. Patient was seen 3 months ago and a lot of time spent on his BMI, his HTN, and his cholesterol. Patient was planning a diet and cleanse although states that he has not really done a good job. He has continued with supplements but has not really changed anything else. He has checked his BPs at home and his readings have been pretty good. He has no current concerns or complaints at this time. He has good energy and no current symptoms. Patient used to ride his bike a lot but has been doing that much recently Patient saw his eye doctor in September. No recent changes Patient does check his feet regularly He denies any paresthesias Patient has no other symptoms at this time ROS Const Constitutional: No body ache, chills, excessive sweating, fatigue, fever(s), frequent falls, headache(s), snoring, weakness, sleep problems or change in appetite Eyes Eyes: No blurry vision, change in vision, eye pain or Light sensitivity ENT ENT: No abnormal hearing, ear or mastoid pain, tinnitus, nasal congestion, headache(s), neck pain or sore throat Resp Respiratory: No cough, shortness of breath, snoring or wheezing Cardio Cardiology: No chest pain at rest, chest pain with exertion, excessive sweating, shortness of breath, dyspnea on exertion, lightheadedness, orthopnea or palpitations Gastro GI: No abdominal pain, change in bowel habits, constipation, cramping, diarrhea, nausea/dyspepsia or vomiting Genitourinary Male: No burning urination, painful urination, urinary incontinence or urinary frequency Musc Musculoskeletal: No abnormal gait, joint pain, back pain, limited range of motion, neck pain or numbness Skin Skin: No dry skin, redness, lesions, itchy eyes, rash or wounds Neuro Neurology: No abnormal gait, abnormal hearing, weakness, frequent falls, headache(s), memory loss or numbness Psych Psychiatric: No anxiety, No change in appetite, No depression, No memory loss and No Thoughts of harming yourself/Others Endo Endocrine: No cold intolerance, excessive sweating, fatigue, flushing, heat intolerance, increased thirst/drinking or increased hunger Aller/Imm Allergy/Immunologic: No itchy eyes, seasonal allergy symptoms, hives or wheezing Conrado/Lymp Hematologic/Lymphatic: No easy bleeding, easy bruising, enlarged lymph nodes or other Exam Const General: cooperative, healthy appearing, comfortable, no acute distress, well developed, well groomed, not in acute distress and not in distress Nutritional Appearance: obese Orientation: alert, awake and oriented x3 HENMT Head: normocephalic and atraumatic Ears: hearing grossly normal bilaterally Neck Neck: full ROM and no lymphadenopathy Neck mass: No Carotids: no bruits Resp Effort Inspection: normal respiratory effort, able to speak in complete sentences, symmetric chest movement, normal respiratory pattern, no cough and respiratory effort not decreased Auscultation: Bilateral: Clear to Auscult (more content not included)... Normal [facility] Basic Metabolic Profile (BMP )on 08-30-2023 BUN/CRE 20.0 RATIO Normal 10-20 [facility] Comment on above: Performed By: #### L 500.2500, L500.4100, L501.9520 #### [facility] [address] [place], [address] CA,Total 9.4 mg/dL Normal 8.5-10.1 [facility] Comment on above: Performed By: #### L 500.2500, L500.4100, L501.9520 #### [facility] [address] [place], [address] Chloride [Moles/Vol] 105 mmol/L Normal 98-107 [facility] Comment on above: Performed By: #### L 500.2500, L500.4100, L501.9520 #### [facility] [address] [place], [address] CO2 [Moles/Vol] 29.0 mmol/L Normal 21.0-32.0 [facility] Comment on above: Performed By: #### L 500.2500, L500.4100, L501.9520 #### [facility] [address] [place], [address] Creatinine [Mass/Vol] 1.00 mg/dL Normal 0.70-1.30 [facility] Comment on above: Result Comment: The validity of the calculated GFR GFRAA in patients over 70 years has not been determined. Clinical correlation is essential. Performed By: #### L 500.2500, L500.4100, L501.9520 #### [facility] [address] [place], [address] EST GFR - AA 99 mL/min Normal >60 [facility] Comment on above: Result Comment: Afri can [place] GFR Calc Performed By: #### L 500.2500, L500.4100, L501.9520 #### [facility] [address] [place], [address] GAP 5 Normal 5-15 [facility] Comment on above: Performed By: #### L 500.2500, L500.4100, L501.9520 #### [facility] [address] [place], [address] GFR/1.73 sq M.predicted among non-blacks MDRD (S/P/Bld) [Vol rate/Area] 82 mL/min/{1.73_m2} Normal >60 [facility] Comment on above: Result Comment: Non- GFR Calc Performed By: #### L 500.2500, L500.4100, L501.9520 #### [facility] [address] [place], [address] Glucose [Mass/Vol] 88 mg/dL Normal 74-106 [facility] Comment on above: Performed By: #### L 500.2500, L500.4100, L501.9520 #### [facility] [address] [place], [address] Potassium [Moles/Vol] 4.4 mmol/L Normal 3.5-5.1 [facility] Comment on above: Performed By: #### L 500.2500, L500.4100, L501.9520 #### [facility] [address] [place], [address] Sodium [Moles/Vol] 139 mmol/L Normal 136-145 [facility] Comment on above: Performed By: #### L 500.2500, L500.4100, L501.9520 #### [facility] [address] [place], [address] Urea nitrogen [Mass/Vol] 20 mg/dL High 7-18 [facility] Comment on above: Performed By: #### L 500.2500, L500.4100, L501.9520 #### [facility] [address] [place], [address] HIP, UNI W/ Pelvis 2-3 Views on 08-30-2023 HIP, UNI W/ Pelvis 2-3 Views [facility] [address] [place] [address] HIP, UNI W/ Pelvis 2-3 Views MR#: [id number] Acct: [id number] Name: GENARO ALICEA Pola Rep #: [id number] : 1965 M 57 From: Lamine Guevara MD PCP: SANDRA Kerns Status: DEP AMB Study: HIP, UNI W/ Pelvis 2-3 Views Date of Exam: 05/20 Exam# [id number] Ordering Dr: Helder Martinez DO [id number] STUDY: X-RAY - PELVIS AND RIGHT HIP REASON FOR EXAM: Male, 57 years old. pain TECHNIQUE: 3 views of the pelvis and hip. COMPARISON: None. FINDINGS: There is a non-specific bowel gas pattern. Normal visualized soft tissue structures. Normal bilateral iliac wings, sacroiliac joints and visualized sacrum. Normal bilateral superior and inferior pubic rami. Normal pubic symphysis. Normal bilateral ischial tuberosities. Normal visualized femoral head. Normal acetabulum. Normal hip joint. RAD/HIP, UNI W/ Pelvis 2-3 Views IMPRESSION: Normal x-ray examination of the pelvis and hip. Electronically Signed: Lamine Guevara MD at 11:25 EDT , CC: Dr. Helder Martinez DO; SANDRA Kerns [employer]: Signed Normal [facility] Internal Medicine Office Vis iton 08-30-2023 Internal Medicine Office Visit [facility] [address] [place] [address] [place] [address] OFFICE VISIT Date of Service: 08/30/23 MR#: [id number] Acct: [id number] Name: GENARO ALICEA Rep #: [id number] : 1965 Provider: SANDRA Kerns Age/Sex: 57/M Location: [facility] Status: Signed Intake Vital Signs 05/02/23 13:30 08/30/23 07:54 08/30/23 10:34 Height 5 ft 9 in 5 ft 9 in 5 ft 9 in Weight: 281 lb 280 lb BMI 41.5 41.3 BP 118/82 H Blood Pressure Location Lt brachial Position Sitting Respiration 16 Pulse 69 Pulse Source Monitor Temp 97.9 F Temp Source Temporal Pulse Oximetry (%) 98 Oxygen Delivery Method room air Intake Visit Reasons: 4 M FU Chief Complaint: 4 M FU Is patient in pain?: No Allergies No Known Allergies Allergy (Unverified 08/30/23 10:33) Medications ???Medication ???Instructions ???Recorded ???Confirmed ???Type etodolac 500 mg tablet 500 mg PO BID #60 tabs 08/30/23 08/30/23 Rx losartan 25 mg tablet 12.5 mg (1/2 x 25 mg) PO DAILY #30 08/30/23 08/30/23 Rx tabs Have you fallen in the past year?: No PFSH Family History Mother Heart disease Diabetes Hypertension Grandfather CVA (cerebral vascular accident) Social History household members: spouse and friend(s) current occupation: self employed Smoking Status: Never smoker alcohol intake: never substance use type: does not use what type of physical activity do you participate in: bicycling frequency: 5-6 times per week do you feel safe at home: Yes HPI HPI Chief Complaint: 4 M FU Details: GENARO ALICEA, is a 57 M who presents to the office today for f/u on his blood pressure and his cholesterol. He was checking his BP regularly and he things were doing a lot better and so now he checks this less often. he has been getting very good numbers typically in the low 120s or the 110s systolically and in the 70s, even upper 60s diastolically. He states that he has been riding his bicycle more and he has been doing better with his diet in that he is cutting back on his baked goods and is increasing his fruits, vegetables, and fish and chicken. He also has been taking a lot of supplements that he is taking from a health / wellness place but ist sure what he is taking. He states that he is currently on a detox supplement regimen but that it will be changing again here soon. He states that he has actually been feeling better and is not having any concerns or complaints at this time. ROS Const Constitutional: No body ache, chills, excessive sweating, fatigue, fever(s), frequent falls, headache(s), snoring, weakness, sleep problems or change in appetite Eyes Eyes: No blurry vision, change in vision or Light sensitivity ENT ENT: No abnormal hearing, ear or mastoid pain, tinnitus, nasal congestion, nasal discharge, headache(s), neck pain or sore throat Resp Respiratory: No cough, shortness of breath, snoring or wheezing Cardio Cardiology: No chest pain at rest, chest pain with exertion, excessive sweating, shortness of breath, dyspnea on exertion, lightheadedness, orthopnea or palpitations Gastro GI: No abdominal pain, change in bowel habits, constipation, cramping, diarrhea or nausea/dyspepsia Genitourinary Male: No burning urination, painful urination, urinary incontinence or urinary frequency Musc Musculoskeletal: No abnormal gait, joint pain, back pain, limited range of motion, muscle weakness, neck pain or numbness Skin Skin: No dry skin, redness, lesions, itchy eyes, rash or wounds Neuro Neurology: No abnormal gait, abnormal hearing, weakness, frequent falls, headache(s), memory loss or numbness Psych Psychiatric: No anxiety, No change in appetite, No depression, No memory loss, No panic attacks and No Thoughts of harming yourself/Others Endo Endocrine: No cold intolerance, excessive sweating, fatigue, flushing, heat intolerance, increased thirst/drinking or increased hunger Aller/Imm Allergy/Immunologic: No itchy eyes, seasonal allergy symptoms, hives or wheezing Exam Const General: cooperative, healthy appearing, comfortable, no acute distress, well developed and well groomed Nutritional Appearance: obese Orientation: alert, awake and oriented x3 [facility] Head: normocephalic and atraumatic Neck Neck: full ROM and no lymphadenopathy Neck mass: No Carotids: no bruits Resp Effort Inspection: normal respiratory effort, able to speak in complete sentences, symmetric chest movement, normal respiratory pattern, no cough and respiratory effort not decreased Auscultation: Bilateral: Clear to Auscultation Cardio Rate: regular rate Rhythm: regular rhythm Heart Sounds: S1 normal, S2 normal and no murmurs Bruits: no carotid brui (more content not included)... Normal [facility] Lipid Profileon 08-30-2023 Cholesterol [Mass/Vol] 247 mg/dL High 200 [facility] Comment on above: Result Comment: <200 mg/dL Desirable 200-240 mg/dL Borderline >240 mg/dL High Risk Performed By: #### L 500.2500, L500.4100, L501.9520 #### [facility] [address] [place], [address] Cholesterol in HDL [Mass/Vol] 43 mg/dL Normal [facility] Comment on above: Result Comment: The drugs N-Acetylcysteine and Metamizole may falsely depress this assay. Reference Range HDL <40 mg/dL Low HDL Cholesterol HDL >or= 60 mg/dL High HDL Cholesterol Performed By: #### L 500.2500, L500.4100, L501.9520 #### [facility] [address] [place], [address] Cholesterol in LDL [Mass/Vol] 185 mg/dL High 0-130 [facility] Comment on above: Performed By: #### L 500.2500, L500.4100, L501.9520 #### [facility] [address] [place], [address] Cholesterol in VLDL [Mass/Vol] 19 mg/dL Normal 5-40 [facility] Comment on above: Performed By: #### L 500.2500, L500.4100, L501.9520 #### [facility] [address] [place], [address] Triglyceride [Mass/Vol] 96 mg/dL Normal [facility] Comment on above: Result Comment: The drugs N-Acetylcysteine and Metamizole may falsely depress this assay. Serum Triglycerides Reference Interval Normal <150 mg/dL Borderline high 150 - 199 mg/dL High 200 - 499 mg/dL Very High > or = 500 mg/dL Performed By: #### L 500.2500, L500.4100, L501.9520 #### [facility] [address] [place], [address] Orthopedic Visit Reporton Orthopedic Visit Report [facility] [address] [place] [address] OFFICE VISIT Date of Service: 08/30/23 MR#: [id number] Acct: [id number] Name: GENARO ALICEA Rep #: [id number] : 1965 Provider: Dr. Helder mcintyre DO Age/Sex: 57/M Location: [facility] Status: Signed Intake Vital Signs 05/02/23 13:30 08/30/23 07:54 Height 5 ft 9 in 5 ft 9 in Weight: 281 lb BMI 41.5 Intake Visit Reasons: RIGHT HIP Is patient in pain?: Yes Pain scale (1-10): 6 Allergies No Known Allergies Allergy (Unverified 08/30/23 07:54) Medications ???Medication ???Instructions ???Recorded ???Confirmed ???Type losartan 25 mg tablet 12.5 mg (1/2 x 25 mg) PO DAILY #30 04/05/23 08/30/23 Rx tabs etodolac 500 mg tablet 500 mg PO BID #60 tabs 08/30/23 08/30/23 Rx PFSH Family History Mother Heart disease Diabetes Hypertension Grandfather CVA (cerebral vascular accident) Social History household members: spouse and friend(s) current occupation: self employed Smoking Status: Never smoker alcohol intake: never substance use type: does not use what type of physical activity do you participate in: bicycling frequency: 5-6 times per week do you feel safe at home: Yes HPI RIGHT HIP Details: This documentation accurately reflects the service provided and the decisions made by me, Dr. Helder Martinez, DO 08/30/23 0751. Part of today???s visit was documented by Ronel Tovar, acting as scribe. GENARO ALICEA is a 57 year old M here today for right hip pain. Patient notes that he has had right hip pain for an unknown amount of time with it worsening over the last few months. Patient denies any known injury. Patient denies any prior surgery to hip or back. He complains of pain over his lateral hip only , no groin pain no radiating symptoms. Patient has increased pain with sitting, laying on his right side and ambulating stairs. He denies any low back pain and denies any radiating pain. Patient denies any treatment. Patient denies any xrays. He denies any pain medications. He states that he does have pain down his lateral thigh to a lesser degree. He saw a chiropractor which was not helpful. Ortho Exam General General: Yes no acute distress Neurologic: Yes alert and Yes oriented x3 Psychologic: Yes reasonable and appropriate Right Hip Skin: Yes CDI, No Ecchymosis, No soft tissue swelling and No Erythema internal rotation @90 degree flexion: 45 degrees external rotation @90 degree extension: 50 degrees Special Tests: Yes TTP Greater Troch, No TTP Greater sciatic notch and No Illiotibial band tenderness HIP: no ttp low back. no pain with IR/ER. no pain with resisted hip flexion with good strength. 5 out of 5 plantarflexion dorsiflexion hip flexion knee extension. no significant swelling. Intact station light touch throughout the lower extremity Supplemental Info 08/29/2020 x-ray right hip: Preserved joint space there is a subchondral cyst in the acetabulum but no other arthritic findings Coding Level of Care Code Off vis,new,level 3 Diagnoses Greater trochanteric bursitis of right hip M70.61 Laterality: right Assessment and Plan Assessment and Plan (1) Greater trochanteric bursitis: Qualifiers: Laterality: right Qualified Code(s): M70.61 - Trochanteric bursitis, right hip Orders: Orders HIP, UNI W/ Pelvis 2-3 Views Today M25.551 - Pain in right hip Medications: New etodolac 500 mg PO BID 60 tabs 0RF Plan Spoke with the patient about the anatomy of the hip and etiology of his pain. Spoke with him about having trochanteric bursitis and his options- continue with rest, steroid injection, physical therapy, oral anti-inflammatory. Explained he is not a surgical candidate at this time. Patient would like to try physical therapy and anti-inflammatories. Follow up on an as needed basis or sooner if pain, swelling, numbness or associated symptoms, or concerns develop. All questions answered. Patient in agreement of plan. 08/30/23 0832 Date Helder Mcnally Signature: Date (if applicable) CC: Normal [facility] Thyroid Stim Hormone (TSH)on 08-30-2023 TSH 1.94 uIU/mL Normal 0.358-3.74 [facility] Comment on above: Performed By: #### L 500.2500, L500.4100, L501.9520 #### [facility] [address] [place], [address] Absolute lymphocyte countOrd ered By: Maury Atkinson on 04-05-2023 Lymphocytes Auto (Unsp spec) [#/Vol] 1.97 10*3/uL 0.83-4.51 [facility] Automated lymphocyte count a s percentage of total leukocytesOrdered By: Maury Atkinson on 04-05-2023 Lymphocytes/100 WBC Auto (Unsp spec) 27.4 % 19-41 [facility] Basophil percentageOrdered B y: Maury Atkinson on 04-05-2023 Basophils/100 WBC (Bld) 0.7 % 0-1 [facility] Bilirubin [Mass/Vol] 0.40 mg/dL 0.20-1.00 [facility] Comment on above: For patients on eltr ombopag therapy, use of Dimension [place] TBIL is not recommended. Chloride [Moles/Vol] 109 mmol/L 98-107 [facility] Cholesterol [Mass/Vol] 272 mg/dL <200 [facility] Comment on above: <200 mg/dL Desirable 200-240 mg/dL Borderline >240 mg/dL High Risk Eosinophils/100 WBC (Bld) 1.4 % 0-5 [facility] Glucose [Mass/Vol] 108 mg/dL 74-106 [facility] Comment on above: Fasting Glucose resu lt from 100 to 125 mg/dL suggests IMPAIRED HOMEOSTASIS per A.D.A. criteria. Hemoglobin (Bld) [Mass/Vol] 14.7 g/dL 13.0-16.5 [facility] Monocytes/100 WBC (Bld) 7.8 % 0-10 [facility] Neutrophils (Bld) [#/Vol] 4.5 10*3/uL 2.0-7.7 [facility] Neutrophils/100 WBC (Bld) 62.6 % 47-70 [facility] Potassium [Moles/Vol] 4.2 mmol/L 3.5-5.1 [facility] Protein [Mass/Vol] 7.6 g/dL 6.4-8.2 [facility] Sodium [Moles/Vol] 138 mmol/L 136-145 [facility] Triglyceride [Mass/Vol] 162 mg/dL <199 [facility] Comment on above: The drugs N-Acetylcy steine and Metamizole may falsely depress this assay.Serum Triglycerides Reference Interval Normal <150 mg/dL Borderline high 150 - 199 mg/dL High 200 - 499 mg/dL Very High > or = 500 mg/dL WBC (Bld) [#/Vol] 7.2 10*3/uL 4.4-11.0 [facility] Determination of erythrocyte mean corpuscular volume (MCV)Ordered By: Maury Atkinson on 04-05-2023 MCV (RBC) [Entitic vol] 84.6 fL 80-94 [facility] Erythrocyte distribution wid th ratioOrdered By: Maury Atkinson on 04-05-2023 Erythrocyte distribution width (RBC) [Ratio] 14.9 % 11.6-14.6 [facility] Erythrocyte distribution wid th standard deviationOrdered By: Maury Atkinson on 04-05-2023 Erythrocyte distribution width (RBC) [Entitic vol] 45.5 fL 35.1-43.9 [facility] Hematocrit Auto (Bld) [Volum e fraction]Ordered By: Maury Atkinson on 04-05-2023 Hematocrit (Bld) [Volume fraction] 46.7 % 40-54 [facility] Immature granulocytes/100 WB C Auto (Bld)Ordered By: Maury Atkinson on 04-05-2023 Immature granulocytes/100 WBC (Bld) 0.100 % 0.0-0.9 [facility] Comment on above: IG% - Immature Granu locytes (promyelocytes, myelocytes and metamyelocytes) > 1% indicates that a LEFT SHIFT is Present. Laboratory - Chemistry and C hemistry - challengeOrdered By: Maury Atkinson on 04-05-2023 Albumin/Globulin [Mass ratio] 1.0 {ratio} 0.9-2.4 [facility] ALP [Catalytic activity/Vol] 80 U/L 45-117 [facility] ALT [Catalytic activity/Vol] 31 U/L 16-61 [facility] Cholesterol in HDL [Mass/Vol] 41 mg/dL >40 [facility] Comment on above: The drugs N-Acetylcy steine and Metamizole may falsely depress this assay. Reference Range HDL <40 mg/dL Low HDL Cholesterol HDL >or= 60 mg/dL High HDL Cholesterol Cholesterol in LDL [Mass/Vol] 199 mg/dL 0-130 [facility] CO2 [Moles/Vol] 24.0 mmol/L 21.0-32.0 [facility] Globulin (S) [Mass/Vol] 3.8 g/dL 2.2-4.2 [facility] Urea nitrogen/Creatinine [Mass ratio] 21.0 mg/mg 10-20 [facility] - Hematology and Cell countsOrdered By: Maury Atkinson on 04-05-2023 MCH (RBC) [Entitic mass] 26.6 pg 27.0-32.0 [facility] MCHC (RBC) [Mass/Vol] 31.5 g/dL 32-36 [facility] Nucleated RBC/100 WBC (Bld) [Ratio] 0 % 0-5 [facility] Platelet mean volume (Bld) [Entitic vol] 11.0 fL 6.2-12.0 [facility] Platelets (Bld) [#/Vol] 316 10*3/uL 150-450 [facility] No Panel InformationOrdered By: Maury Atkinson on 04-05-2023 Estimated GFR (MDRD) Amer 94 mL/min >60 [facility] Comment on above: GFR Calc Estimated GFR (MDRD) Non-Af Amer 78 mL/min >60 [facility] Comment on above: Non- GFR Calc Prostate Specific Antigen Screen 0.91 ng/mL 0.00-4.00 [facility] Comment on above: This test was perfor med using the TPSA assay method for the[employer] chemistry system. Values obtained with differentassay methods cannot be used interchangably.When changing PSA assays in the course of monitoring apatient, additional sequential testing should be carriedout to confirm baseline values. VLDL Cholesterol 32 mg/dL 5-40 [facility] RBC Auto (Bld) [#/Vol]Ordere d By: Maury Atkinson on 04-05-2023 RBC (Bld) [#/Vol] 5.52 10*6/uL 4.6-6.2 [facility] Serum or plasma calcium león urement (mass/volume)Ordered By: Maury Atkinson on 04-05-2023 Calcium [Mass/Vol] 9.4 mg/dL 8.5-10.1 [facility] Serum or plasma creatinine m easurement (mass/volume)Ordered By: Maury Atkinson on 04-05-2023 Creatinine [Mass/Vol] 1.05 mg/dL 0.70-1.30 [facility] Comment on above: The validity of the calculated GFR & GFRAA in patients over 70 years has not been determined. Clinical correlation is essential. Serum or plasma urea nitroge n measurement (mass/volume)Ordered By: Maury Atkinson on 04-05-2023 Urea nitrogen [Mass/Vol] 22 mg/dL 7-18 [facility] Thin prep Papanicolaou smear with manual screeningOrdered By: Maury Atkinson on 04-05-2023 Thin prep Papanicolaou smear with manual screening 3.8 g/dL 3.2-5.0 [facility] Thin prep Papanicolaou smear with manual screening 16 U/L 15-37 [facility] Thin prep Papanicolaou smear with manual screening 5 5-15 [facility] Whole blood hemoglobin A1c/t otal hemoglobin ratio (mass fraction)Ordered By: Maury Atkinson on 04-05-2023 HbA1c (Bld) [Mass fraction] 5.9 % 3.8-5.6 [facility] Comment on above: Normal < 5.7 % Predi abetic 5.7 - 6.4 % Diabetic >or= 6.5 % Please note range changes. CNOVon 11-01-2022 CNOV Office Visit (GENSWS ) -------- GENARO ALICEA ([id number]) 1965 Date Time Provider Department 11/01/22 2:45 PM LAMINE KHAN GENSWS During your visit today, we recorded the following information about you: Lamine Khan MD 11/01/2022 6:31 PM Signed FOLLOW UP VISIT NAME: Genaro Alicea CLINIC NO.: [id number] DATE OF SERVICE: 10/18/2022 : 1965 Genaro [...] instructed to follow-up with me if needed. ___ Lamine Khan MD Referring Provider: ARABELLA STUBBS [[id number]] Allergies As of Date: 11/01/2022 (No Known Allergies) Date Reviewed: 11/01/2022 Reviewed by: Chen Blum LPN - Fully Assessed Reason for Visit: Follow Up [171] Cmt: Re-excision of incision Primary Visit Diagnosis:SCCA (squamous cell carcinoma) of skin [C44.92] Other Visit Diagnosis:Lesion of face [L98.9] Problem List As Of Date: 11/01/2022 (None) Encounter Status:Closed by LAMINE KHAN on 11/01/22 [facility] CNOVon 10-18-2022 CNOV Office Visit (GENSWS ) -------- NIXONGENARO E ([id number]) 1965 Date Time Provider Department 10/18/22 2:00 PM LAMINE KHAN GENSWS During your visit today, we recorded the following information about you: Temperature Pulse Blood pressure Weight 98 degrees 93/minute 140/82 146.8 kg Lamine Khan MD 10/18/2022 3:08 PM Signed FOLLOW UP VISIT NAME: Genaro E [facility] NO.: [id number] DATE OF SERVICE: 10/18/2022 : 1965 Genaro [...] patient notes any problems or signs of marvin infection, the patient should contact me immediately. Prescribed Keflex 4 times a day for 10 days anticipating this will hopefully resolve this issue and then have him return for wider excision in 2 weeks. Diagnoses: (L98.9) Lesion of face (primary encounter diagnosis) (C44.92) SCCA (squamous cell carcinoma) of skin Return to Clinic: The patient is instructed to follow-up with me in 2 weeks. ___ Lamine Khan MD Referring Provider: ARABELLA STUBBS [[id number]] Allergies As of Date: 10/18/2022 (No Known Allergies) Date Reviewed: 10/18/2022 Reviewed by: Lamine Khan MD - Fully Assessed Reason for Visit: Consult [173] Cmt: Lesion of face/ follow up of re-excision Primary Visit Diagnosis:Lesion of face [L98.9] Other Visit Diagnosis:SCCA (squamous cell carcinoma) of skin [C44.92] Order(s):cephALEXin (KEFLEX) 500 mg capsuleTake 1 capsule by mouth four times daily for 10 days.Disp: 40 capsuleRfl: 0 Prescriptions as of 10/18/2022 - cephALEXin (KEFLEX) 500 mg capsule Take 1 capsule by mouth four times daily for 10 days. Problem List As Of Date: 10/18/2022 (None) Prescriptions ordered this encounter Disp Refills Start End CEPHALEXIN 500 MG CAPSULE 40 c* 0 10/18/2022 10/28/2022 Route: ORAL Sig: Take 1 capsule by mouth four times daily for 10 days. Encounter Status:Closed by LAMINE KHAN on 10/18/22 [facility] GENARO ALICEA ([id number]) 1965 M Date Time Provider Department 09/22/22 LAMINE KHAN During your visit today, we recorded the following information about you: Keerthi Jaime RN 09/22/2022 2:52 PM Signed Gnearo was in the office on 08/29/22 and had a lesion removed from his chin and was to follow up in our office in 1 week. He did not schedule a follow up visit and his pathology was never reviewed. Please review his pathology and advise regarding any needed follow up. ANNITA Cheng Rhonda, RN 09/23/2022 9:19 AM Signed Lamine Khan MD You; [facility] General Surgery Pool 16 minutes ago (8:58 AM) He needs to follow up and have a wider excision. If he chooses not to have thatr done, he should return for check in 6 months Spoke with Genaro, reviewed Dr. Khan's recommendations. Genaro advised that the area never healed right. He states that he is currently out of town, but will call when he is home to schedule a follow-up visit with Dr. Khan. ANNITA Cheng Rhonda, RN 10/10/2022 1:27 PM Signed Please reach out to patient and schedule with Dr. Khan for a surgery 30 for a re-excision. Thank you. Keerthi Jaime RN Allergies As of Date: 09/22/2022 (No Known Allergies) Date Reviewed: 08/29/2022 Reviewed by: Lamine Khan MD - Fully Assessed Reason for Visit: Results [95] Cmt: 08/29/22 surgical pathology Problem List As Of Date: 09/22/2022 (None) Encounter Status:Closed by KEERTHI JAIME on 10/12/22 [facility] CNOVon 08-29-2022 CNOV Office Visit (GENSWS ) -------- GENARO ALICEA ([id number]) 1965 M Date Time Provider Department 08/29/22 3:00 PM LAMINE KHAN During your visit today, we recorded the following information about you: Temperature Pulse Blood pressure Weight 97.3 degrees 94/minute 140/78 146.7 kg Height 1.753 m Mehnaz Smith RN 08/29/2022 4:40 PM Signed UNIVERSAL PROTOCOL / SAFETY CHECKLIST Procedure to [...] Plan of Care Visit completed when applicable. ANNITA Francis RN 08/29/2022 3:16 PM Signed The following instructions are important for you related to your office visit today with the [facility] General Surgeons. Instructions After SKIN EXCISION-SUTURES If [...] you should contact our office immediately @ [phone] and ask to be transferred to the General Surgery department. Lamine Khan MD 08/29/2022 4:40 PM Signed HISTORY AND PHYSICAL Genaro E Nixon 1965 REFERRING PHYSICIAN: Arabella Stubbs APRN.CNP CHIEF [...] ?C (97.3 ?F), height 175.3 cm (5' 9), weight (!) 146.7 kg (323 lb 6.4 [...] LABORATORY VALUES: As Noted RADIOLOGIC STUDIES: As Note (more content not included)... Normal [facility] SURGICAL PATHOLOGYon 023 CASE REPORT Normal [facility] Comment on above: Order Comment: Speci men Type: TISSUE SPECIMEN Ordering Facility: [facility] Address: [address] [place] [address] Result Comment: Surg ica Pathology Report Case: [id number] Authorizing Provider: Lamine Khan MD Collected: 08/29/2022 03:17 PM Ordering Location: General Surgery Received: 08/31/2022 11:42 AM Pathologist: Tess Brooks MD Specimen: SKIN EXCISION, chin Performed By: #### S #### [facility] CLIA [id number] [facility] [address] STATES OF [facility] CLINICAL HISTORY Skin lesion chin Normal [facility] Comment on above: Order Comment: Srirami miah Type: TISSUE SPECIMEN Ordering Facility: [facility] Address: [address] [place] [address] Performed By: #### S #### [facility] CLIA [id number] [address] [place] [address] [place] [address] [facility] DIAGNOSIS COMMENT - Additional deeper sections examined. The lesion is tangentially sectioned, precluding definitive margin assessment. Conservative re-excision to ensure complete removal is recommended. Normal [facility] Comment on above: Order Comment: Speci men Type: TISSUE SPECIMEN Ordering Facility: [facility] Address: [address] [place] [address] Performed By: #### S #### 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 JK/KK/td 09/01/2022 Performed By: #### S #### [facility] CLIA [id number] [address] [place] [address] FINAL PERFORMING LAB Normal [facility] Comment on above: Order Comment: Speci men Type: TISSUE SPECIMEN Ordering Facility: [facility] Address: [address] [place] [address] Result Comment: Diag nostic interpretation performed at [facility], [address] [place] [address] CLIA# [id number] Risk Analyst: Silverio Sanz M.D. Performed By: #### S #### [facility] CLIA [id number] [address] [place] [address] GROSS DESCRIPTION Normal [facility] Comment on above: Order Comment: Speci men Type: TISSUE SPECIMEN Ordering Facility: [facility] Address: [address] [place] [address] Result Comment: Chastity VALENCIA EXCISION Received in formalin is an unoriented ellipsoid segment of skin and subcutaneous tissue measuring 1.0 x 0.7 x 0.9 cm. The entire skin surface demonstrates an irregular williamson elevated area. The margins are inked black. The specimen is sectioned and totally submitted as follows: A1 rounded tips, A2 remainder of tissue. Gross examination performed at [facility], [address] [place] [address] FFS 08/31/2022 8:38 PM Performed By: #### S #### [facility] CLIA [id number] [address] [place] [address] [facility] CNOVon 08-26-2022 CNOV Office Visit (UCWSTR ) -------- GENARO ALICEA ([id number]) 1965 M Date Time Provider Department 08/26/22 12:45 PM EVELYNE, ARABELLA [facility] During your visit today, we recorded the following information about you: Temperature Pulse Respiration Blood pressure 97.6 degrees 81/minute 16/minute 144/82 Weight 146.8 kg Arabella Stubbs APRN.BROOMMAKING SUPERVISOR 08/26/2022 1:42 PM Signed Subjective The history is provided by the patient. No hourly sign language interpreter was used. HPI Genaro Alicea is a [...] have confirmed and edited as necessary, the [facility] Review of Systems Constitutional: Negative for chills [...] discussed in detail warranting prompt ER evaluation. MIGUE Bowen APRN.CNP 08/26/2022 1:26 PM Addendum Options Appointment September 26 at 220 pm at [facility] [phone] Or May call surgeons at [place], evaluate and decide if can remove, referral placed. Referring Provider: SELF [[id number]] Allergies As of Date: 08/26/2022 (Not on File) Date Reviewed: 08/26/2022 Reviewed by: Arabella Stubbs APRN.JAIDA - Fully Assessed Reason for Visit: Pain [78] Cmt: Pt reported (LT) sided swollen area, x3 mths. Primary Visit Diagnosis:Lesion of face [L98.9] Order(s):CONSULT TO GENERAL SURGERY [9011] Order #: [id number]: 1 FUTURE Problem List As Of Date: 08/26/2022 (None) Other instructions from your clinician: Options Appointment September 26 at 220 pm at [facility] [phone] Or May call surgeons at [place], evaluate and decide if can remove, referral placed. Encounter Status:Closed by ARABELLA STUBBS on 08/26/22 Normal [facility] XR Chest PA and Lateralon IMPRESSION: Central interstitial prominence suspicious for an infectious/inflammatory process, venous congestion/edema not excluded. [place] Winder And Oiler: SUZAN Transcribe Date/Time: Dec 16 2019 11:13A Dictated by : LILIAN CARLOS MD This examination was interpreted and the report reviewed and electronically signed by: LILIAN CARLOS MD on Dec 16 2019 11:14AM [facility] DIVISION OF RADIOLOGY * * *Final Report* * * DATE OF EXAM: Dec 16 2019 11:10AM WOX [id number] - XR CHEST 2V FRONTAL/LAT / PROCEDURE REASON: Cough * * * * Physician Interpretation * * * * EXAMINATION: CHEST RADIOGRAPH (2 VIEW FRONTAL & LATERAL) CLINICAL HISTORY: Cough MQ: XC2_6 EXAM DATE/TIME: 12/16/2019 11:10 AM COMPARISON: No relevant prior studies available. RESULT: Lines, tubes, and devices: None. Lungs and pleura: There is central perihilar bronchointerstitial prominence suspicious for infectious/inflammatory process, venous congestion/edema considered. Patchy atelectasis right mid lung. No pleural effusion or pneumothorax. Cardiomediastinal silhouette: Normal cardiomediastinal silhouette. Bones and soft tissues: Unremarkable. DIVISION OF RADIOLOGY Provider, Rachell [facility] - 12/16/2019 * * *Final Report* * * DATE OF EXAM: Dec 16 2019 11:10AM WOX [id number] - XR CHEST 2V FRONTAL/LAT / PROCEDURE REASON: Cough * * * * Physician Interpretation * * * * EXAMINATION: CHEST RADIOGRAPH (2 VIEW FRONTAL & LATERAL) CLINICAL HISTORY: Cough MQ: XC2_6 EXAM DATE/TIME: 12/16/2019 11:10 AM COMPARISON: No relevant prior studies available. RESULT: Lines, tubes, and devices: None. Lungs and pleura: There is central perihilar bronchointerstitial prominence suspicious for infectious/inflammatory process, venous congestion/edema considered. Patchy atelectasis right mid lung. No pleural effusion or pneumothorax. Cardiomediastinal silhouette: Normal cardiomediastinal silhouette. Bones and soft tissues: Unremarkable. IMPRESSION IMPRESSION: Central interstitial prominence suspicious for an infectious/inflammatory process, venous congestion/edema not excluded. [place] [employer] Oiler: [facility] Transcribe Date/Time: Dec 16 2019 11:13A Dictated by : LILIAN CARLOS MD This examination was interpreted and the report reviewed and electronically signed by: LILIAN CARLOS MD on Dec 16 2019 11:14AM EST [facility] Radiology Study observation (narrative) [facility] XR Chest PA and LateralOrder ed By: Ccf Provider on 12-16-2019 [facility] Vital Signs Date Time Vital Sign Value Performing Clinician Facility 05-02-2023 13:30-0500 Body height 175.26 cm No Primary Care Physician [facility] 05-02-2023 13:30-0500 Body weight 139.97 kg No Primary Care Physician [facility] 04-20-2023 13:36-0500 Body mass index (BMI) [Ratio] 45.3 kg/m2 No Primary Care Physician [facility] 04-20-2023 13:36-0500 Body temperature 97.8 [degF] No Primary Care Physician [facility] 04-20-2023 13:36-0500 Body weight 139.25 kg No Primary Care Physician [facility] 04-20-2023 13:36-0500 Diastolic blood pressure 82 mm[Hg] No Primary Care Physician [facility] 04-20-2023 13:36-0500 Heart rate 80 /min No Primary Care Physician [facility] 04-20-2023 13:36-0500 Respiratory rate 16 /min No Primary Care Physician [facility] 04-20-2023 13:36-0500 SaO2% (BldA) [Mass fraction] 95 % No Primary Care Physician [facility] 04-20-2023 13:36-0500 Systolic blood pressure 126 mm[Hg] No Primary Care Physician [facility] 04-05-2023 08:44-0500 Body height 175.26 cm No Primary Care Physician [facility] 04-05-2023 08:44-0500 Body mass index (BMI) [Ratio] 45.3 kg/m2 No Primary Care Physician [facility] 04-05-2023 08:44-0500 Body temperature 97.3 [degF] No Primary Care Physician [facility] 04-05-2023 08:44-0500 Body weight 139.36 kg No Primary Care Physician [facility] 04-05-2023 08:44-0500 Diastolic blood pressure 80 mm[Hg] No Primary Care Physician [facility] 04-05-2023 08:44-0500 Heart rate 85 /min No Primary Care Physician [facility] 04-05-2023 08:44-0500 Respiratory rate 16 /min No Primary Care Physician [facility] 04-05-2023 08:44-0500 SaO2% (BldA) [Mass fraction] 97 % No Primary Care Physician [facility] 04-05-2023 08:44-0500 Systolic blood pressure 140 mm[Hg] No Primary Care Physician [facility] 12-08-2022 13:00-0400 Body height 175.26 cm [facility] 12-08-2022 13:00-0400 Body weight 142.88 kg [facility] 10-18-2022 13:35-0400 Body temperature 98.01 [degF] Lamine Khan MD Work Phone: [facility] 10-18-2022 13:35-0400 Body weight 146.78 kg Lamine Khan MD Work Phone: [facility] 10-18-2022 13:35-0400 Diastolic blood pressure 82 mm[Hg] Lamine Khan MD Work Phone: [facility] 10-18-2022 13:35-0400 Heart rate 93 /min Lamine Khan MD Work Phone: [facility] 10-18-2022 13:35-0400 SaO2% (BldA) [Mass fraction] 98 % Lamine Khan MD Work Phone: [facility] 10-18-2022 13:35-0400 Systolic blood pressure 140 mm[Hg] Lamine Khan MD Work Phone: [facility] 10-10-2022 15:24-0400 Body height 175.26 cm [facility] 10-10-2022 15:24-0400 Body weight 145.96 kg [facility] 08-29-2022 14:54-0400 Body height 175.3 cm Lamine Khan MD Work Phone: [facility] 08-29-2022 14:54-0400 Body temperature 97.3 [degF] Lamine Khan MD Work Phone: [facility] 08-29-2022 14:54-0400 Body weight 146.69 kg Lamine Khan MD Work Phone: [facility] 08-29-2022 14:54-0400 Diastolic blood pressure 78 mm[Hg] Lamine Khan MD Work Phone: [facility] 08-29-2022 14:54-0400 Heart rate 94 /min Lamine Khan MD Work Phone: [facility] 08-29-2022 14:54-0400 SaO2% (BldA) [Mass fraction] 99 % Lamine Khan MD Work Phone: [facility] 08-29-2022 14:54-0400 Systolic blood pressure 140 mm[Hg] Lamine Khan MD Work Phone: [facility] 08-26-2022 12:49-0400 Body temperature 97.59 [degF] Arabella Evelyne FORGE OPERATOR.BROOMMAKING SUPERVISOR Work Phone: [facility] 08-26-2022 12:49-0400 Body weight 146.78 kg Arabella Evelyne FORGE OPERATOR.BROOMMAKING SUPERVISOR Work Phone: [facility] 08-26-2022 12:49-0400 Diastolic blood pressure 82 mm[Hg] Arabella Evelyne FORGE OPERATOR.BROOMMAKING SUPERVISOR Work Phone: [facility] 08-26-2022 12:49-0400 Heart rate 81 /min Arabella Evelyne FORGE OPERATOR.BROOMMAKING SUPERVISOR Work Phone: [facility] 08-26-2022 12:49-0400 Respiratory rate 16 /min Arabella Evelyne FORGE OPERATOR.BROOMMAKING SUPERVISOR Work Phone: [facility] 08-26-2022 12:49-0400 SaO2% (BldA) [Mass fraction] 95 % Arabella Evelyne FORGE OPERATOR.BROOMMAKING SUPERVISOR Work Phone: [facility] 08-26-2022 12:49-0400 Systolic blood pressure 144 mm[Hg] Arabella Evelyne FORGE OPERATOR.BROOMMAKING SUPERVISOR Work Phone: [facility] Encounters Encounter Date Encounter Type Care Provider Facility Start: 06-26-2024 End: 06-26-2024 ambulatory Helder Martinez Facility:[facility] Start: 05-13-2024 End: 05-13-2024 ambulatory Helder Martinez Facility:[facility] Start: 11-29-2023 End: 11-29-2023 ambulatory Maury FLORES Facility:[facility] Start: 08-30-2023 End: 08-30-2023 ambulatory Maury FLORES Facility:[facility] Start: 08-30-2023 End: 08-30-2023 ambulatory Maury FLORES Facility:[facility] Start: 08-30-2023 End: 08-30-2023 ambulatory Maury FLORES Facility:[facility] Start: 05-02-2023 End: 05-28-2023 ambulatory No Primary Care Physician [facility] Work Phone: Start: 05-02-2023 End: 05-28-2023 Discharged Recurring No Primary Care Physician [facility] Work Phone: Start: 04-20-2023 End: 04-20-2023 Patient encounter procedure No Primary Care Physician [facility] Work Phone: Start: 04-05-2023 End: 04-05-2023 ambulatory No Primary Care Physician [facility] Work Phone: Start: 04-05-2023 End: 04-05-2023 Patient encounter procedure No Primary Care Physician [facility] Start: 04-05-2023 Patient encounter status No Primary Care Physician [facility] Start: 04-05-2023 End: 04-05-2023 Encounter for general adult medical examination without abnormal findings No Primary Care Physician [facility] Start: 04-05-2023 End: 04-05-2023 Patient encounter procedure No Primary Care Physician [facility] Work Phone: Start: 12-08-2022 End: 12-27-2022 ambulatory [facility] Work Phone: Start: 12-08-2022 End: 12-27-2022 Discharged Recurring [facility] Work Phone: Start: 11-01-2022 End: 11-01-2022 ambulatory LAMINE KHAN Facility:[facility] Start: 11-01-2022 End: 11-01-2022 Patient encounter procedure Lamine Khan MD Work Phone: General Surgery Comment on above: SCCA (squamous cell carcinoma) of skin (Primary Dx); Lesion of face Start: 10-18-2022 End: 10-18-2022 ambulatory LAMINE KHAN Facility:[facility] Start: 10-18-2022 End: 10-18-2022 Patient encounter procedure Lamine Khan MD Work Phone: General Surgery Comment on above: Lesion of face (Prim anne Dx); SCCA (squamous cell carcinoma) of skin Start: 10-10-2022 End: 10-27-2022 ambulatory [facility] Work Phone: Start: 10-10-2022 End: 10-27-2022 Discharged Recurring [facility] Work Phone: Start: 08-29-2022 End: 08-29-2022 ambulatory ARABELLA STUBBS Facility:[facility] Start: 08-29-2022 End: 08-29-2022 Patient encounter procedure Lamine Khan MD Work Phone: General Surgery Comment on above: Lesion of face Start: 08-26-2022 End: 08-26-2022 ambulatory SELF Facility:[facility] Start: 08-26-2022 End: 08-26-2022 Patient encounter procedure Arabella Stubbs FORGE OPERATOR.BROOMMAKING SUPERVISOR Work Phone: [facility] Comment on above: Lesion of face (Prim anne Dx) Start: 12-16-2019 End: 12-16-2019 Subsequent hospital visit by physician Xr [facility] Work Phone: Radiology Comment on above: Cough [R05] Procedures Date Procedure Procedure Detail Performing Clinician Start: 12-16-2019 Radiologic exam ches t 2 views Melissa English FORGE OPERATOR.BROOMMAKING SUPERVISOR Work Phone: Plan of Treatment Date Care Activity Detail Author Start: 10-29-2023 Covid-19 Vaccine ( season) Covid-19 Vaccine ( season) [facility] Start: 10-29-2023 Influenza vaccination Influenza Vacc ine (#1) [facility] Start: 10-28-2022 Influenza vaccination C [facility] Start: 09-24-2022 PROSTATE CANCER SCREENING DISCUSSION PROSTATE CANCER SCREENING DISCUSSION [facility] Start: 09-24-2022 Prostate specific antigen measurement Prostate Cancer Screening Discussion [facility] Start: 02-27-2022 DEPRESSION ASSESSMENT DEPRESSION ASS ESSMENT [facility] Start: 09-24-2017 SHINGRIX VACCINE (1 of 2) SHINGRIX VACCINE (1 of 2) [facility] Start: 09-24-2012 COLOGUARD (FIT-DNA) COLOGUARD (FIT-D NA) [facility] Start: 09-24-2012 Colonoscopy COLONOSCOPY [facility] Start: 09-24-2012 COLORECTAL CANCER SCREENING COLORECTAL CANCER SCREENING [facility] Start: 09-24-[address] [facility] Start: 09-24-2012 DIABETES SCREEN [facility] Start: 09-24-2012 Diabetes Screening Diabetes Screenin g [facility] Start: 09-24-2012 FECAL OCCULT BLOOD FECAL OCCULT BLOO D [facility] Start: 09-24-2012 Screening for malign ant neoplasm of colon [facility] Start: 09-24-2012 SIGMOIDOSCOPY SIGMOIDOSCOPY [facility] Start: 09-24-2002 Lipid panel Lipid Screening [facility] Start: 09-24-2002 LIPID SCREEN LIPID SCREEN [facility] Start: 09-24-1986 Hepatitis B Vaccine (1 of 3 - 19+ 3-dose series) Hepatitis B Vaccine (1 of 3 - 19+ 3-dose series) [facility] Start: 09-24-1986 Urine microalbumin profile [facility] Start: 09-24-1985 Anxiety Screening Anxiety Screening [facility] Start: 09-24-1985 Depression Screening Depression Scre ening [facility] Start: 09-24-1985 HEPATITIS C SCREENING HEPATITIS C [facility] Start: 09-24-1985 Hepatitis C screening Hepatitis C [facility] Start: 09-24-1985 HIV SCREENING HIV SCREENING [facility] Start: 09-24-1985 HIV screening HIV Screening [facility] Start: 03-27-1968 COVID-19 VACCINE (#1) COVID-19 VACCI NE (#1) [facility] Start: 1965 HEPATITIS B (1 of 3 - 3-dose series) HEPATITIS B (1 of 3 - 3-dose series) [facility] SURGICAL PATHOLOGY SURGICAL PATH OLOGY Lab Routine Lesion of face Ordered: 08/29/[address] [facility] Work Phone: Comment on above: Ordered: 08/29/2022 [facility] Payers Date Payer Category Payer Self-pay [id number] 2023 Unknown [id number] Unknown [facility] [employer] [id number] Unknown [id number] Unknown [id number] Unknown [id number] Unknown [id number] Unknown [id number] Unknown [id number] Unknown [id number] Unknown [id number] Social History Date Type Detail Facility Start: 08-26-2022 Tobacco smoking stat us WAIS Never smoked tobacco [facility] Start: 08-26-2022 Tobacco use and exposure Smokeless tobacco non-user [facility] Start: 1965 Sex Assigned At Not on file C [facility] Start: 08-29-2022 End: 10-18-2022 Alcohol intake Lifetime non-drinker (finding) [facility] Start: 02-05-2020 End: 10-18-2022 History of Social function [facility] Start: 02-05-2020 End: 10-18-2022 Tobacco use panel [facility] National Score (1-100), lower number is lower risk Not on file [facility] Start: 1965 Sex Assigned At Male W [facility] Start: 04-05-2023 End: 04-20-2023 Tobacco smoking status NHIS Unknown if ever smoked [facility] Start: 11-16-2019 End: 12-16-2019 Exposure to SARS-CoV-2 (event) Not sure [facility] Clinical Notes 12-16-2019 to 11-01-2022 Lamine Khan MD - 11/01/2022 6:28 PM Lamine Mack MD - 10/18/2022 1:59 PM Pat Jaime RN - 08/29/2022 4:29 PM Rubio Khan MD - 08/29/2022 4:10 PM EDT Note Date & Type Note Facility 11-01-2022 Note HNO ID: [id number] Author: Lamine Khan MD Service: ? Author Type: Physician Type: Progress Notes Filed: 11/01/2022 6:31 PM Note Text: FOLLOW UP VISIT NAME: Genaro Escalona [facility] NO.: [id number] DATE OF SERVICE: 10/18/2022 : 1965 Genaro [...] instructed to follow-up with me if needed. Lamine Khan MD [facility] 11-01-2022 History of Presen t illness Narrative FOLLOW UP VISIT NAME: Genaro Escalona [facility] NO.: [id number] DATE OF SERVICE: 10/18/2022 : 1965 Genaor is a patient I am following for [...] instructed to follow-up with me if needed. Lamine Khan MD documented in this encounter [facility] 10-18-2022 Note HNO ID: [id number] Author: Lamine Khan MD Service: ? Author Type: Physician Type: Progress Notes Filed: 10/18/2022 3:08 PM Note Text: FOLLOW UP VISIT NAME: Genaro Escalona [facility] NO.: [id number] DATE OF SERVICE: 10/18/2022 : 1965 Genaro [...] patient notes any problems or signs of marvin infection, the patient should contact me immediately. Prescribed Keflex 4 times a day for 10 days anticipating this will hopefully resolve this issue and then have him return for wider excision in 2 weeks. Diagnoses: (L98.9) Lesion of face (primary encounter diagnosis) (C44.92) SCCA (squamous cell carcinoma) of skin Return to Clinic: The patient is instructed to follow-up with me in 2 weeks. Lamine Khan MD [facility] 10-18-2022 History of Presen t illness Narrative FOLLOW UP VISIT NAME: Genaro Escalona [facility] NO.: [id number] DATE OF SERVICE: 10/18/2022 : 1965 Genaro [...] patient notes any problems or signs of marvin infection, the patient should contact me immediately. Prescribed Keflex 4 times a day for 10 days anticipating this will hopefully resolve this issue and then have him return for wider excision in 2 weeks. Diagnoses: (L98.9) Lesion of face (primary encounter diagnosis) (C44.92) SCCA (squamous cell carcinoma) of skin Return to Clinic: The patient is instructed to follow-up with me in 2 weeks. Lamine Khan MD documented in this encounter [facility] 08-29-2022 Note HNO ID: [id number] Author: Lamine Khan MD Service: ? Author Type: Physician [...] ?C (97.3 ?F), height 175.3 cm (5' 9), weight (!) 146.7 kg (323 lb 6.4 [...] follow-up with my staff in one week. Lamine Khan MD [facility] 08-29-2022 Note HNO ID: [id number] Author: Mehnaz Smith RN Service: ? Author [...] Visit completed when applicable. Mehnaz Smith RN [facility] 08-29-2022 Nurse Note REVIEW OF SYSTEMS: General: [...] Mammogram screening? N/A Last Colonoscopy: None Keerthi Jaime RN documented in this encounter [facility] 08-29-2022 History of Presen t illness Narrative HISTORY AND PHYSICAL Genaro Alicea 1965 REFERRING [...] C (97.3 F), height 175.3 cm (5' 9), weight (!) 146.7 kg (323 lb 6.4 [...] follow-up with my staff in one week. Lamine Khan MD UNIVERSAL PROTOCOL / SAFETY CHECKLIST [...] Mehnaz Smith RN documented in this encounter [facility] 08-29-2022 Instructions Mehnaz Smith RN - 08/29/2022 3:16 PM EDT The following instructions are important for you related to your office visit today with the [facility] General Surgeons. Instructions After SKIN EXCISION-SUTURES If [...] you should contact our office immediately @ [phone] and ask to be transferred to the General Surgery department. documented in this encounter [facility] 08-26-2022 Note HNO ID: [id number] Author: Arabella Stubbs APRN.BROOMMAKING SUPERVISOR Service: ? Author Type: Nurse Practitioner Type: Progress Notes Filed: 08/26/2022 1:42 PM Note Text: Subjective The history is provided by the patient. No hourly sign language interpreter was used. HPI Genaro Alicea is a [...] have confirmed and edited as necessary, the [facility] Review of Systems Constitutional: Negative for chills [...] warranting prompt ER evaluation. Arabella Stubbs APRN.CNP [facility] 08-26-2022 Instructions Arabella Stubbs APRN.CNP - 08/26/2022 1:19 PM EDT Options Appointment September 26 at 220 pm at [facility] [phone] Or May call surgeons at [place], evaluate and decide if can remove, referral placed. documented in this encounter [facility] 08-26-2022 History of Presen t illness Narrative Subjective The history is provided by the patient. No hourly sign language interpreter was used. HPI Genaro Alicea is a [...] have confirmed and edited as necessary, the [facility] Review of Systems Constitutional: Negative for chills [...] detail warranting prompt ER evaluation. Arabella Stubbs APRN.JAIDA documented in this encounter [facility] 12-16-2019 History of Presen t illness Narrative Radiology Service Progress Note PATIENT NAME: Genaro Alicea DATE OF SERVICE: December 16, 2019 TIME: 11:04 AM PATIENT IDENTITY VERIFICATION COMPLETED USING TWO (2) IDENTIFIERS: Name and Date of confirmed by patient verbally. FALL SCREENING: Has the patient had 2 falls in the last year or 1 fall with injury or currently using an Ambulatory Assistive Device (Walker, Cane, Wheelchair, Crutches, etc.)? No PATIENT GENDER DATA: Male PATIENT RELEVANT IMPLANT DATA REVIEWED: Not Applicable RADIOLOGY DEPARTMENT: General X-ray: Exam(s) Completed: Chest X-Ray PERIPHERAL IV DATA: Not applicable SIGNED BY: Von Beyer December 16, 2019 11:04 AM documented in this encounter [facility] Evaluation note Diagnosis Lesion of face- Primary [facility] Diagnosis Lesion of face [facility] Diagnosis Lesion of face- Primary SCCA (squamous cell carcinoma) of skin [facility] noteNo assessment information [facility] Work Phone: Evaluation note* Diagnosis SCCA (squamous cell carcinoma) of skin- Primary Lesion of face [facility] Diagnosis Onset Date Resolution Status Essential hypertension acute Routine adult health maintenance acute [facility] Work Phone: Evaluation note* Diagnosis Onset Date Resolution Status Essential hypertension acute Routine adult health maintenance acute Essential hypertension acute Hyperlipidemia acute [facility] [facility] Work Phone: Evaluation note* Diagnosis Cough documented in this encounter [facility] Reason for Referral Specialty Diagnoses / Procedures Referred By Isma madrid Referred To Contact General Surgery Diagnoses Lesion of face Procedures CONSULT TO GENERAL SURGERY OFFICE/OUTPATIENT [facility] 60-74 MINUTES Arabella Stubbs APRN.BROOMMAKING SUPERVISOR [address] [place] [address] Referral ID Status Reason Start Date Expiration Date Visits Requested Visits Authorized [id number] Pending Review PCP Requested Referral 08/26/2022 08/26/2023 1 1 Chief Complaint and Reason for Visit Chief Complaint OBESITY Chief Complaint OBESITY OBESITY 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, ASKED FOR MARIELOS Reason for Visit Essential hypertensi on Routine adult health bridge maintenance worker Complaint TRANSFORMER SHOP SUPERVISOR EST CARE NEEDS PP W, ASKED FOR MARIELOS 2 WK FU OBESITY Reason for Visit Essential hypertensi on Routine adult health maintenance Essential hypertension Hyperlipidemia Summary Purpose Family History No Family History Records Found Relationship Condition Age at Onset Recorded Date/T bhanu mother Cardiac disease Unknown Diabetes mellitus Unknown Hypertension Unknown grandfather Cerebrovascular accident (CVA) Unknown Advance Directives No Advanced Directives Records FoundNo Advanced Directives Records Found Additional Source Comments Source Comments (unrecognize d section and content) In the event this informatio n is protected by the Federal Confidentiality of Alcohol and Drug Abuse Patient Records regulations: The Federal rules restrict any use of the information to criminally investigate or prosecute any alcohol or drug abuse patient.[facility] the event this information is protected by the Federal Confidentiality of Alcohol and Drug Abuse Patient Records regulations: The Federal rules restrict any use of the information to criminally investigate or prosecute any alcohol or drug abuse patient.[facility] the event this information is protected by the Federal Confidentiality of Alcohol and Drug Abuse Patient Records regulations: The Federal rules restrict any use of the information to criminally investigate or prosecute any alcohol or drug abuse patient.[facility] the event this information is protected by the Federal Confidentiality of Alcohol and Drug Abuse Patient Records regulations: The Federal rules restrict any use of the information to criminally investigate or prosecute any alcohol or drug abuse patient.[facility] the event this information is protected by the Federal Confidentiality of Alcohol and Drug Abuse Patient Records regulations: The Federal rules restrict any use of the information to criminally investigate or prosecute any alcohol or drug abuse patient.[facility] Reason for Visit (unrecogniz ed section and content) Reason Comments Follow Up Re-excision of incis ion Specialty Diagnoses / Procedures Referred By [facility] Referred To Contact Diagnoses Nevi on face, bleeding and enlarging Procedures Nevi on face, bleeding and enlarging Arabella Stubbs, FORGE OPERATOR.BROOMMAKING SUPERVISOR [address] [place] [address] [place] [address] Referral ID Status Reason Start Date Expiration Date Visits Requested Visits Authorized [id number] Authorized Patient Cleared - Qualified 100% FAS 08/26/2022 11/24/2022 99 99 Reason Comments Pain Pt reported (LT) rosa ed swollen area, x3 mths. Reason Comments Consult Lesion on face for 1 2 weeks, enlarging in size. Procedure Specialty Diagnoses / Procedures Referred By [facility] Referred To Contact Diagnoses Nevi on face, bleeding and enlarging Procedures Nevi on face, bleeding and enlarging Arabella Stubbs, FORGE OPERATOR.BROOMMAKING SUPERVISOR [address] [place] [address] [facility] Reason Comments Consult Lesion of face/ foll ow up of re-excision Reason Comments Radiology XR Specialty Diagnoses / Procedures Referred By [facility] Referred To Contact Radiology / [facility] Diagnoses Cough [R05] Procedures XR CHEST Melissa English, FORGE OPERATOR.BROOMMAKING SUPERVISOR [address] [place] [address] [facility] [address] [place] [place] [id number] Referral ID Status Reason Start Date Expiration Date V isits Requested Visits Authorized [id number] Closed Financial Clearance Required - Self Pay 12/16/2019 03/15/2020 1 1 Care Teams (unrecognized sec tion and content) Team Status: Active Member Role Status Dates Dr. Marvin Cruz III, MD Family Provider Active Team Status: Inactive Member Role Status Dates Dr. Jose Jo MD Attending Provider, Referring Ghada werner Active Team Status: Active Member Role Status Dates Dr. Marvin Cruz III, MD Family Provider Active No Primary Care Physician Primary Care Provider Active Team Status: Inactive Member Role Status Dates Dr. Jose Jo MD Attending Provider, Referring P alphonso Active No Primary Care Physician Primary Care Provider Active Team Status: Active Member Role Status Dates Dr. Marvin Cruz III, MD Family Provider Active SANDRA Salgado Primary Care Provider Active Team Status: Inactive Member Role Status Dates No Primary Care Physician Primary Care Provider, Refer ring Provider Active SANDRA Salgado Attending Provider Active Team Status: Inactive Member Role Status Dates SANDRA Salgado Primary Care Provider, Attending P alphonso Active Team Status: Inactive Member Role Status Dates SANDRA Salgado Primary Care Provide r, Attending Provider, Referring Provider Active Goals (unrecognized section and content) Goals may be documented in a n alternate sectionGoals may be documented in an alternate sectionGoals may be documented in an alternate sectionGoals may be documented in an alternate section (unrecognized sect ion and content) No Status Records FoundNo Status Records Found INFORMATION SOURCE (unrecogn ized section and content) DATE CREATED AUTHOR 11/02/2022 [facility] DATE CREATED AUTHOR AUTHOR'S ORGANIZ ATION 07/01/2024 [facility] FOR RECORDS PERTAINING TO PATIENTS WHO ARE [...] BE BASED ON THE PRIMARY CLINICAL RECORDS. [employer] provides no warranty or guarantee of the accuracy or completeness of information in this document.
--- NOTE | 2025-01-23 16:12 | EKG12_ITS ---
Test Reason : SOB Blood Pressure : */* mmHG Vent. Rate : 91 BPM Atrial Rate : 91 BPM P-R Int : 144 ms QRS Dur : 138 ms QT Int : 372 ms P-R-T Axes : 4 58 18 degrees QTcB Int : 457 ms Normal sinus rhythm Right bundle branch block Abnormal ECG No previous ECGs available Confirmed by Rustam Bowie ([id number]), associate editor ANNIE CRAIG ([id number]) on 01/27/2025 1:53:39 PM Referred By: Confirmed By: Rustam Bowie
--- NOTE | 2025-01-23 16:15 | EDS_ITS ---
HPI History of Present Illness Chief Complaint: Cough Informant: patient Narrative Narrative: Patient is a 59-year-old male with history of hypertension and hyperlipidemia presenting with ongoing cough as well as new dizziness and now back pain. Patient states he has had minimally productive cough congestion for about 6 weeks. He notes that for the past 4 days he has had dizziness. Describes as a lightheadedness when he tries to do things/exert himself. Is not reporting shortness of breath. Denies any chest pain. Denies any swelling of his legs. Denies any history of DVT or PE. PFSH PFSH Home Medications ?Medication ?Instructions ?Recorded ?Last Taken ?Type losartan 25 mg tablet 12.5 mg (1/2 x 25 mg) PO KENDELL LY #30 08/30/23 Unknown Rx tabs etodolac 500 mg tablet 500 mg PO BID PRN pain #60 t abs 05/13/24 Unknown Rx amoxicillin 500 mg tablet 1,000 mg (2 x 500 mg) PO TID #30 01/23/25 Unknown Rx tabs azithromycin 250 mg tablet 250 mg PO DAILY #4 TABLETS 01/23/25 Unknown Rx Allergy/AdvReac Type Severity Reaction Status Date / Time No Known Allergies Allergy Verified 01/23/25 15:27 Family History Mother Heart disease Diabetes Hypertension Grandfather CVA (cerebral vascular accident) Social History household members: spouse and friend(s) current occupation: self employed Smoking Status: Never smoker alcohol intake: never substance use type: does not use what type of physical activity do you participate in: bicycling frequency: 5-6 times per week do you feel safe at home: Yes ROS ROS ED Constitutional Constitutional ED: Denies chills or fever(s) ENT ENT ED: Denies sore throat Cardiovascular Cardiovascular: Denies chest pain or palpitations Respiratory/Chest Respiratory/Chest: Reports cough, dyspnea and sputum Gastrointestinal Gastrointestinal: Denies abdominal pain, nausea or vomiting Musculoskeletal Musculoskeletal: Denies arthralgias or myalgias Integumentary Denies rash Neurologic Neurologic: Reports other Details: lightheaded ; Denies weakness Hematologic/Lymphatic Hematologic/Lymphatic: Denies easy bleeding or easy bruising EXAM Physical Exam Const Vital Signs: 01/23/25 15:26 01/23/25 16:40 01/23/25 16:40 Temperature 100 F H Temperature Source Oral Pulse Rate 97 92 Respiratory Rate 20 H 18 Blood Pressure 172/82 H Blood Pressure Mean 112 Pulse Ox 95 98 Oxygen Delivery Method Room Air Room Air 01/23/25 17:27 01/23/25 18:00 01/23/25 18:27 Temperature 99.6 F H 100.6 F H Temperature Source Oral Oral Pulse Rate 97 103 H Respiratory Rate 16 21 H Blood Pressure 175/77 H 192/68 H Blood Pressure Mean 109 109 Pulse Ox 98 98 Oxygen Delivery Method Room Air Room Air Room Air 01/23/25 18:52 01/23/25 19:40 Temperature 100.8 F H 98.0 F Temperature Source Oral Pulse Rate 112 H 105 H Respiratory Rate 20 H 19 H Blood Pressure 185/73 H 185/70 H Blood Pressure Mean 110 108 Pulse Ox 100 96 Oxygen Delivery Method Room Air Positive well nourished and well developed General Appearance ED: well developed and NAD HEENT Reports moist mucous membranes Eyes PERRL Neck supple and no JVD Chest Wall inspection of chest normal and palpation of chest normal Resp Auscultation: diminished lung sounds bilateral lower; Negative for rhonchi or wheezes Cardio regular rhythm and no murmurs Rate: tachycardic GI normal to inspection, nondistended, normoactive bowel sounds and non-tender Extremity normal to inspection General Extremety ED: Negative for edema General Extremity: Negative for edema Neuro oriented x3 Sensorium / Orientation: alert Motor Exam: general weakness Psych mental status grossly normal Skin no rashes or lesions noted and no wounds MDM MDM MDM Narrative Medical decision making narrative: Patient evaluated for 6 weeks of cough with worsening symptoms over the past 3 to 4 days. Upon arrival he is a low-grade temperature of 100 ?F, respiratory rate of 20 and is hypertensive. Does have a history of hypertension. Differential includes is not limited to pneumonia, viral illness, bronchitis, pulmonary emboli, pleural effusion and less likely ACS. Workup does show a very mild leukocytosis of 11.6. Patient is not hypoxic in the emergency room. No left shift. Does have an elevation of his D-dimer. Remainder of labs largely normal except he has a mild transaminitis with an AST of 81 and ALT of 85. This is nonspecific. Bilirubin is normal. Likely of any abdominal pain or GI symptoms. CTA of the chest is added on given his elevated D-dimer. His chest x-ray viewed by myself as well as urology does not show any acute process. CT of the chest does show left lower lobe pneumonia. This is consistent with clinical presentation. Patient is ambulated in the emergency room with no hypoxia. I think he is a good candidate for outpatient treatment. He is given first dose of both amoxicillin and azithromycin in the emergency room. Counseled on taking ibuprofen and/or Tylenol for fever control in the emergency room. Was given IV fluids. Given return precautions. Discharged home in stable condition. Lab Data Attestation: I reviewed the patient's lab results. Labs: Laboratory Results - last 24 hr 01/23/25 16:26 WBC 11.6 H RBC 5.25 Hgb 14.7 Hct 45.3 MCV 86.3 MCH 28.0 MCHC 32.5 RDW Std Deviation 47.2 H RDW Coeff of Navya 14.9 H Plt Count 255 MPV 11.2 Immature Gran % (Auto) 0.400 Neut % (Auto) 86.0 H Lymph % (Auto) 7.9 L Nuckolls % (Auto) 5.4 Eos % (Auto) 0.0 Baso % (Auto) 0.3 Absolute Neuts (auto) 9.9 H Absolute Lymphs (auto) 0.91 Nucleated RBC % 0 D-Dimer Quant (PE/DVT) 1.26 H* Sodium 137 Potassium 4.0 Chloride 101 Carbon Dioxide 21.4 Anion Gap 14 BUN 18 Creatinine 1.01 Estim Creat Clear Calc 113.29 Est GFR (MDRD) Non-Af 87 BUN/Creatinine Ratio 17.3 Glucose 117 H Calcium 9.0 Total Bilirubin 0.46 AST 81 H ALT 85 H Alkaline Phosphatase 108 Troponin T High Sens 13 Troponin T Hi Sens 2 Hr 15 Total Protein 7.3 Albumin 4.0 Globulin 3.3 Albumin/Globulin Ratio 1.2 Radiography Chest X-Ray - ED: 2 View, Read by ED Physician and No Acute Disease Diagnostic Testing: Clinical Impression(s) from Imaging Studies Chest X-Ray 01/23/25 16:58 IMPRESSION: No evidence of acute cardiopulmonary disease. Reading Location: [facility] Chest CTA 01/23/25 17:45 IMPRESSION: Left lower lobe pneumonia. No pulmonary arterial emboli identified. Reading Location: [facility] Rhythm Strip Rhythm Strip: Sinus Rhythm Rate: 91 Ectopy: None EKG Initial EKG: Attestation: I personally reviewed and interpreted this EKG as follows: Interpretation: Sinus Rhythm Comments: Normal sinus rhythm at a rate of 91 bpm Normal axis Right bundle branch block Normal ST segments Prior: No Prior Discharge Plan Triage Chief Complaint: Cough ED Provider: Brissa Crain Dx/Rx/DC Orders Clinical Impression: Left lower lobe pneumonia Instructions: ED Pneumonia (Adult) Prescriptions: New azithromycin 250 mg tablet 250 mg PO DAILY Qty: 4 0RF amoxicillin 500 mg tablet 1,000 mg PO TID Qty: 30 0RF No Action losartan 25 mg tablet 12.5 mg PO DAILY Qty: 30 2RF etodolac 500 mg tablet 500 mg PO BID PRN (Reason: pain) Qty: 60 0RF Primary Care Provider: Maury Atkinson Referrals: Maury Atkinson PA [Primary Care Provider, Internal Medicine] Activity Restrictions/Additional Instructions: Your CT shows pneumonia. This is likely the cause of your symptoms. Make sure you are drinking plenty of fluids, working on keeping up your nutrition and alternate ibuprofen and Tylenol as needed for fever. If you feel your symptoms are worsening please do not hesitate to return to the emergency room Print Language: Turkish Disposition Disposition: Home, Self Care Discharge Date/Time: 01/23/25 20:07
[2025-01-23] MEDS: 0.9% Normal Saline (1000mL) 1,000 ML 999 ML IV (16:26)
[2025-01-23 16:56] LABS: Hematocrit 45.3 % (40-54); Hemoglobin 14.7 g/dL (13.0-16.5); Immature Granulocytes Count 0.050 X10^3/uL (0.0-0.0); Mean Corp Hgb Conc 32.5 g/dL (32-36); Mean Corpuscular Volume 86.3 fL (80-94); Mean Platelet Vol. 11.2 fl (6.2-12.0); NRBC Flagged by Analyzer 0 % (0-5); Platelet Count 255 K/mm3 (150-450); RBC Distribution Width CV 14.9 % (11.6-14.6); RBC Distribution Width SD 47.2 fl (35.1-43.9); Red Blood Count 5.25 M/mm3 (4.6-6.2); White Blood Count 11.6 K/mm3 (4.4-11.0)
--- NOTE | 2025-01-23 16:58 | RAD_ITS ---
PROCEDURE: CHEST PA AND LATERAL 01/23/2025 REASON FOR EXAM: SOB, COUGH TECHNIQUE: Procedure Code: RADCXR Modality: DX Procedure: CHEST PA AND LATERAL COMPARISON: None. FINDINGS: Lungs/Pleura: No appreciable focal consolidation, pneumothorax or pleural effusion. Heart/Mediastinum: Within normal limits. Bones/Soft tissues: Mild degenerative changes of the spine. RAD/Chest PA and Lateral IMPRESSION: No evidence of acute cardiopulmonary disease. Reading Location: [id number]
[2025-01-23 17:03] LABS: Troponin T High Sensitivity 13 ng/L (<=22)
[2025-01-23 17:04] LABS: AST(SGOT) 81 U/L (<=37); Alanine Aminotransfer ALT/SGPT 85 U/L (<=46); Albumin, Serum 4.0 g/dL (3.5-5.0); Alkaline Phosphatase 108 U/L (40-129); Anion Gap 14 (5-15); BUN 18 mg/dL (4-19); BUN/Creat Ratio 17.3 RATIO (10-20); Calcium,Total 9.0 mg/dL (7.6-11.0); Carbon Dioxide 21.4 mmol/L (21.0-32.0); Chloride 101 mmol/L (98-108); Estimated Creatinine Clearance 113.29 ml/min (50-250); Globulin 3.3 g/dL (2.2-4.2); Glucose 117 mg/dL (70-99); Potassium 4.0 mmol/L (3.3-5.1)
[2025-01-23 17:10] LABS: D-Dimer Quantitative (DVT/PE) 1.26 FEU/ug/m (0.27-0.49)
--- NOTE | 2025-01-23 17:45 | CT_ITS ---
PROCEDURE: CTA CHEST W/WO CONTRAST 01/23/2025 REASON FOR EXAM: SOB, BACK PAIN, ELEVATED DIMER TECHNIQUE: Procedure Code: [id number] Modality: CT Procedure: CTA CHEST W/WO CONTRAST Multiplanar Sagittal and Coronal images were obtained. 3D post processing was performed. CONTRAST: Isovue 370 VOLUME: 73 mL One or more dose reduction techniques were used (e.g., Automated exposure control, adjustment of the mA and/or kV according to patient size, use of iterative reconstruction technique). RADIATION DOSE SUMMARY: DLP: 572.7 mGycm COMPARISON: None. FINDINGS: PULMONARY VESSELS: No filling defects suspicious for pulmonary arterial emboli identified. Normal caliber main pulmonary trunk. No evidence of right heart strain. LUNGS/PLEURA: Left lower lobe peribronchial airspace consolidation compatible with pneumonia. The right lung is clear. No pneumothorax or pleural effusion. Patent central airways. MEDIASTINUM: Increased reactive subcentimeter mediastinal and left hilar lymph nodes. HEART: Normal in size. No pericardial effusion. No coronary artery calcification. THORACIC AORTA: Normal. No aneurysm or dissection. UPPER ABDOMEN: No significant abnormality, as visualized. BONES: Mild multilevel degenerative changes of the thoracic spine. CT/CTA Chest W/WO Contrast IMPRESSION: Left lower lobe pneumonia. No pulmonary arterial emboli identified. Reading Location: [id number]
[2025-01-23 18:46] LABS: Troponin T High Sens 2 HR 15 ng/L (<=22)
[2025-01-23] MEDS: AMOXICILLIN 500 MG CAPSULE 1000 MG PO (19:46)
== END 2025-01-23 20:07 | disposition home or self-care (01) ==
PROVIDERS: Emergency Provider Emergency Medicine; PCP Physician Assistant; Visit Provider Emergency Medicine
DX: J18.9 Pneumonia, unspecified organism (principal); I45.10 Unspecified right bundle-branch block; I10 Essential (primary) hypertension; E78.5 Hyperlipidemia, unspecified; Z79.899 Other long term (current) drug therapy
CPT/HCPCS: 71046; 71275; 80053; 84484; 85025; 85379; 93005; 94640; 96360; 96361; 99284; Q9967; A4216